=== PATIENT | female | born 1975 | race Caucasian/White ===

== ENCOUNTER 2024-11-21 18:14 | Emergency (ER) | payer BC, SELFPAY ==
--- NOTE | ~2024-11-21 | CT_ITS ---
EXAMINATION: CT brain wo con DATE: 11/21/2024 18:56 INDICATION: syncope, unknown cause . TECHNIQUE: Computed tomography (CT) of the head was performed without intravenous contrast. The mA wa s adjusted according to patient size. Iterative reconstruction technique was employed. The dose-lengt h product was 605.33 mGy-cm. COMPARISON: None. FINDINGS: No acute intracranial hemorrhage or extra-axial fluid collection. No hydrocephalus, mass, or herniation. No acute ischemic infarct. Unremarkable dural venous sinus attenuation. No acute osseous abnormality. The aerated spaces are clear. IMPRESSION: No acute intracranial process. Reviewed, dictated and finalized at location K.
--- NOTE | ~2024-11-21 | XR_ITS ---
A CHEST RADIOGRAPH, PA AND LATERAL CLINICAL HISTORY: cardiac history . COMPARISON: None available TECHNIQUE: PA and lateral views of the chest. FINDINGS The cardiomediastinal silhouette is unremarkable. The lungs are clear. IMPRESSION: No focal infiltrate or effusion. Reviewed, dictated and finalized at location A.
[2024-11-21 18:16] VITALS: BP 116/81; PULSE 88; RESP 16; TEMP 36.7; O2SAT 98
--- OUTSIDE RECORDS SUMMARY | 2024-11-21 18:16 | XMS_ITS | Clinical Summary ---
Author Organization [facility] Address [address] [place] [address] Care Team Providers Care Academic Associate Name Role Phone No, Physician Primary Care Provider [phone] Allergies Active Allergy Reactions Criticality Noted Date Comments Propoxyphene-Acetaminophen Medications VENTOLIN HFA 90 mcg/actuation inhaler USE 2 PUFFS BY MOUTH TWICE A DAY 5 8 Active budesonide-formote rol (SYMBICORT) 160-4.5 mcg/actuation inhaler Inhale 2 puffs 2 (two) times a day. Rinse mouth with water after use to reduce aftertaste and incidence of candidiasis. Do not swallow. Active ipratropium-albute rol (COMBIVENT RESPIMAT) 20-100 mcg/actuation inhalerIndications :Chronic Obstructive Pulmonary Disease with Bronchospasms Inhale 1 puff 4 (four) times a day. Active nystatin 100,000 unit/mL suspension Take 5 mL (500,000 Units total) by mouth 4 (four) times a day. 60 mL 8 Active methylPREDNISolone (MEDROL DOSEPACK) 4 mg Dosepack follow package directions 21 tablet 8 Active ALPRAZolam (XANAX) 0.5 mg tablet Take 1 tablet (0.5 mg total) by mouth 3 (three) times a day as needed for anxiety 10 tablet 0 Active ondansetron ODT (ZOFRAN-ODT) 4 mg disintegrating tablet Dissolve 1 tablet oral every 4 hours as needed for nausea or vomiting. 15 tablet 0 Active LORazepam (ATIVAN) 0.5 mg tablet Take 1 tablet (0.5 mg total) by mouth 3 (three) times a day as needed for anxiety 6 tablet 0 Active azithromycin (Zithromax Z-Ender) 250 mg tablet Take 1 tablet (250 mg total) by mouth daily Take first 2 tablets together, then 1 every day until finished. 6 tablet 4 Active benzonatate (TESSALON) 100 mg capsuleIndications :Cough Take 1 capsule (100 mg total) by mouth 3 (three) times a day as needed for cough for up to 30 doses 30 capsule 4 Active Active Problems Problem Noted Date Diagnosed Date Arthralgia of left foot 01/07/2018 Cellulitis of left foot 01/07/2018 Medical History Medical History Date Comments COPD (chronic obstructive pulmonary disease) Cervical cancer (HCC) COPD (chronic obstructive pulmonary disease) Social History Tobacco Use Types Packs/Day Years Used Date Smoking Tobacco: Every Day Smokeless Tobacco: Never Alcohol Use Standard Drinks/Week Comments Not Currently 0 (1 standard drink = 0.6 oz pur e alcohol) Personal Safety Answer Date Recorded Have you ever been in or are you currently in a harmful physical or emotional relationship or is someone making you feel afraid or unsafe? 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 Gender Identity Not on file Sexual Orientation Not on file Obstetrics History Last Filed Vital Signs Vital Sign Reading Time Taken Comments Blood Pressure 104/67 07/19/2023 3:00 PM CDT Pulse 93 07/19/2023 3:08 PM CDT Temperature 36.8 C (98.3 F) 07/19/2023 10:47 AM CDT Respiratory Rate 16 07/19/2023 10:47 AM CDT Oxygen Saturation 94% 07/19/2023 3:08 PM CDT Inhaled Oxygen Concentration - - Weight 77.1 kg (170 lb) 07/19/2023 10:47 AM CDT Height 175.3 cm (5' 9) 07/19/2023 10:47 AM CDT Body Mass Index 25.1 07/19/2023 10:47 AM CDT Plan of Treatment Health Maintenance Due Date Last Done Comments Cervical Cancer Screening 1973 Colon Cancer Screening-Colonoscopy 1973 Depression Screening 1973 Hepatitis C Screening 1973 DTaP/Tdap/Td Vaccine (1 - Tdap) 1984 Hepatitis B Screening 07/26/1991 Regular Well Visit/Exam 18-64 07/26/1991 Pneumococcal vaccine <65 (1 of 2 - PCV) 1992 Breast Cancer Screening-Mammogram 05/12/2016 016, 01/16/2014 Zoster Vaccine (1 of 2) 07/26/2023 Covid-19 Vaccine (4 - season) 2023 03/02/2021, 07/02/2020, 06/10/2020 Influenza Vaccine (#1) 2024 02/24/2022, 2014 Procedures Procedure Name Priority Date/Time Associated Diagnosis Comments DIGITAL MAMMOGRAPHY Routine 01/16/2014 1 :06 PM CDT from Last 3 Months or Most Recently Relevant to Health Maintenance Results * DIGITAL MAMMOGRAPHY (01/16/2014 1:06 PM CDT) Anatomical Region Laterality Modality Breast Mammography 01/16/2014 1:06 PM CDT Narrative 01/16/2014 4:39 PM CDT Diag Mamm Bi Acc#: [id number] DATE OF EXAM: Jan 16 2014 Performed by: CLINICAL HISTORY: Family history of breast cancer involving grandmother, great grandmother and one cousin. RESULT: Three images of each breast were obtained correlated to a study dated 03/02/10. There is a heterogeneous dense fibroglandular pattern once again identified which does diminish the mammogram sensitivity for lesion detection. No suspicious mass or calcification is identified to suggest mammographic evidence of malignancy. Digital technology was employed plus computer-aided detection software (R2) was utilized in interpretation of these images. This facility utilizes a reminder system to notify patients of yearly mammograms. IMPRESSION: 1. NO DEFINITIVE MAMMOGRAPHIC EVIDENCE OF MALIGNANCY. 2. DENSE HETEROGENEOUS FIBROGLANDULAR PATTERN DIMINISHING MAMMOGRAM SENSITIVITY FOR FOCAL LESION DETECTION. 3. ANNUAL FOLLOW-UP RECOMMENDED. BI-RADS CATEGORY 1 - NEGATIVE Interpreting Physician: BRADY DENT M.D. Read on: Jan 16 2014 1:06P Transcribed by: geovani On: Jan 16 2014 3:19P Approved Electronically by: BRADY DENT M.D. on: Jan 16 2014 4:39P Ordering DR: KENDAL MILNER Attending : KENDAL MILNER Procedure Note Provider, MD Marsha - 08/04/2016 Diag Mamm Bi Acc#: [id number] DATE OF EXAM: Jan 16 2014 Performed by: CLINICAL HISTORY: Family history of breast cancer involving grandmother, great grandmotherand one cousin. RESULT: Three images of each breast were obtained correlated to a study dated105/02/09. There is a heterogeneous dense fibroglandular pattern once againidentified which does diminish the mammogram sensitivity for lesiondetection. No suspicious mass or calcification is identified to suggestmammographic evidence of malignancy. Digital technology was employed pluscomputer-aided detection software ([employer]) was utilized in interpretation ofthese images. This facility utilizes a reminder system to notify patientsof yearly mammograms. IMPRESSION: 1. NO DEFINITIVE MAMMOGRAPHIC EVIDENCE OF MALIGNANCY. 2. DENSE HETEROGENEOUS FIBROGLANDULAR PATTERN DIMINISHING MAMMOGRAMSENSITIVITY FOR FOCAL LESION DETECTION. 3. ANNUAL FOLLOW-UP RECOMMENDED. BI-RADS CATEGORY 1 - NEGATIVE Interpreting Physician: BRADY DENT M.D. Read on: Jan 16 2014 1:06P Transcribed by: geovani On: Jan 16 2014 3:19P Approved Electronically by: BRADY DENT M.D. on: Jan 16 2014 4:39P Ordering DR: KENDAL MILNER Attending : KENDAL MILNER Historical Provider IMG MAMMO PROCEDURES Arleth l Result from Last 3 Months or Most Recently Relevant to Health Maintenance Insurance [facility] ACCESS CHOICE Member Subscriber Plan / Payer (Ef fective 2023-Present) Name:Risa mAanda Relation to Subscriber:Self Name:Risa Amanda Payer ID:[id number] (NAIC) Type:[employer] Address: [facility] [id number] [place] [id number] Care Teams Academic Associate Relationship Specialty Start Date End Date No, Physician PCP - General 05/16/19
--- OUTSIDE RECORDS SUMMARY | 2024-11-21 18:16 | XMS_ITS | Encounter Summary ---
Author Organization [facility] Address [address] [place] [address] Phone Care Team Providers Care Manufacturing Plant Technician Name Role Phone Kendall Blanton MD Unavailable [phone] Eddie Josue MD Primary Care Provider Remington Coker DPFrancisco Unavailable Unavailable Ayad Wilhelm MD Unavailable Reason for Visit * Reason Comments Medication Refill Encounter Details Date Type Department Care Team (Late st Contact Info) Description 02/13/2023 Refill [facility] [address] [place] [id number] Eddie Josue MD [address] [address] Medication Refill Social History Tobacco Use Types Packs/Day Years Used Date Smoking Tobacco: Never Smokeless Tobacco: Never Alcohol Use Standard Drinks/Week Comments No 0 (1 standard drink = 0.6 oz pur e alcohol) Sexually Active Control Partners Comments Not Currently Comments No Sex and Gender Information Value Date Recorded Sex Assigned at Not on file 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 Requested Prescriptions Pending Prescriptions Disp Refills zolpidem (AMBIEN) 5 MG Tablet [Pharmacy Med Name: ZOLPIDEM 5MG TABLETS] 30 Tablet 0 Sig: TAKE 1 TABLET BY MOUTH AT BEDTIME NEEDED FOR SLEEP Not Delegated - Off Protocol Failed - 02/13/2023 6:26 PM Failed - This refill cannot be delegated Passed - Visit with relevant provider in past 12 months or upcoming 90 days Recent Visits Date Type Provider Dept 08/31/22 Office Visit Eddie Josue MD [facility] 02/24/22 Office Visit Eddie Josue MD [facility] Showing recent visits within past 365 days and meeting all other requirements Future Appointments Date Type Provider Dept 03/01/23 Appointment Eddie Josue MD [facility] Showing future appointments within next 90 days and meeting all other requirements cyclobenzaprine (FLEXERIL) 10 MG Tablet [Pharmacy Med Name: CYCLOBENZAPRINE 10MG TABLETS] 90 Tablet0 Sig: TAKE 1 TABLET BY MOUTH THREE TIMES DAILY NEEDED FOR MUSCLE SPASMS Not Delegated - Muscle Relaxants Protocol Failed - 02/13/2023 6:26 PM Failed - This refill cannot be delegated Passed - Visit with relevant provider in past 12 months or upcoming 90 days Recent Visits Date Type Provider Dept 08/31/22 Office Visit Eddie Josue MD [facility] 02/24/22 Office Visit Eddie Josue MD [facility] Showing recent visits within past 365 days and meeting all other requirements Future Appointments Date Type Provider Dept 03/01/23 Appointment Eddie Josue MD [facility] Showing future appointments within next 90 days and meeting all other requirements ADVISOR documented in this encounter Plan of Treatment Upcoming Encounters Date Type Department Care Team (Late st Contact Info) Description 12/13/2024 10:30 AM CDT Office Visit [facility] - Family Medicine - [place] [address] [place] [address] Eddie Josue MD #2 [facility] [address] [place] [address] documented as of this encounter Visit Diagnoses Diagnosis Primary insomnia Persistent disorder of initiating or maintaining sleep documented in this encounter Additional Health Concerns Infection Onset Date Last Indicated Resolved Time Respiratory Rule-Out 07/13/2023 07/13/2023 024 2:06 PM CDT COVID - 19 07/13/2023 07/13/2023 07/13/2023 2:06 PM CDT documented as of this encounter Care Teams Manufacturing Plant Technician Relationship Specialty Start Date End Date Eddie Josue MD #2 [facility] [address] [place] [address] PCP - General Family Medicine 08/07/21 Kendall Blanton MD [address] [place] [address] [place] [address] Family Medicine 06/03/15 Remington Coker DPM Podiatry 02/10/22 Ayad Wilhelm MD #2 [facility] [address] [place] [address] Consulting Physician Colon and Rectal Surgery 10/27/23 documented as of this encounter
--- OUTSIDE RECORDS SUMMARY | 2024-11-21 18:16 | XMS_ITS | Encounter Summary ---
Author Organization [facility] Address [address] [place] [address] Phone Care Team Providers Care Covering And Lining Supervisor Name Role Phone Kendall Blanton MD Unavailable [phone] Eddie Josue MD Primary Care Provider Remington Coker DPFrancisco Unavailable Unavailable Ayad Wilhelm MD Unavailable Reason for Visit * Reason Comments Medication Refill Encounter Details Date Type Department Care Team (Late st Contact Info) Description 12/15/2022 Refill [facility] [address] [place] [id number] Eddie Josue MD #[address] [address] Medication Refill Social History Tobacco Use Types Packs/Day Years Used Date Smoking Tobacco: Never Smokeless Tobacco: Never Alcohol Use Standard Drinks/Week Comments No 0 (1 standard drink = 0.6 oz pur e alcohol) Sexually Active Control Partners Comments Not Currently Comments No Sex and Gender Information Value Date Recorded Sex Assigned at Not on file 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 Requested Prescriptions Pending Prescriptions Disp Refills cyclobenzaprine (FLEXERIL) 10 MG Tablet [Pharmacy Med Name: CYCLOBENZAPRINE 10MG TABLETS] 90 Tablet0 Sig: TAKE 1 TABLET BY MOUTH THREE TIMES DAILY NEEDED FOR MUSCLE SPASMS Not Delegated - Muscle Relaxants Protocol Failed - 12/15/2022 1:00 PM Failed - This refill cannot be delegated Passed - Visit with relevant provider in past 12 months or upcoming 90 days Recent Visits Date Type Provider Dept 08/31/22 Office Visit Eddie Josue MD [facility] 02/24/22 Office Visit Eddie Josue MD [facility] Showing recent visits within past 365 days and meeting all other requirements Future Appointments Date Type Provider Dept 03/01/23 Appointment Eddie Josue MD [facility] Showing future appointments within next 90 days and meeting all other requirements documented in this encounter Plan of Treatment Upcoming Encounters Date Type Department Care Team (Late st Contact Info) Description 12/13/2024 10:30 AM CDT Office Visit [facility] - Family Medicine - [place] [address] [place] [address] Eddie Josue MD #[address] [address] documented as of this encounter Visit Diagnoses Not on filedocumented in this encounter Additional Health Concerns Infection Onset Date Last Indicated Resolved Time Respiratory Rule-Out 07/13/2023 07/13/2023 024 2:06 PM CDT COVID - 19 07/13/2023 07/13/2023 07/13/2023 2:06 PM CDT documented as of this encounter Care Teams Covering And Lining Supervisor Relationship Specialty Start Date End Date Eddie Josue MD #[address] [address] PCP - General Family Medicine 08/07/21 Kendall Blanton MD [address] [place] [address] [place] [address] Family Medicine 06/03/15 Remington Coker DPM Podiatry 02/10/22 Ayad Wilhelm MD #[address] [address] Consulting Physician Colon and Rectal Surgery 10/27/23 documented as of this encounter
--- OUTSIDE RECORDS SUMMARY | 2024-11-21 18:16 | XMS_ITS | Encounter Summary ---
Author Organization [facility] Address [address] [place] [address] Phone Care Team Providers Care Gamer Name Role Phone Kendall Blanton MD Unavailable [phone] Eddie Josue MD Primary Care Provider Remington Coker DPM Unavailable Unavailable Ayad Wilhelm MD Unavailable Reason for Visit * Reason Comments Medication Refill Encounter Details Date Type Department Care Team (Late st Contact Info) Description 09/13/2022 Refill [facility] - Family Medicine [facility] #[address] [place] [address] Eddie Josue MD #[address] [address] Medication Refill Social History Tobacco Use Types Packs/Day Years Used Date Smoking Tobacco: Never Smokeless Tobacco: Never Alcohol Use Standard Drinks/Week Comments No 0 (1 standard drink = 0.6 oz pur e alcohol) Sexually Active Control Partners Comments Not Currently Comments No Sex and Gender Information Value Date Recorded Sex Assigned at Not on file 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 No / Unsure 08/31/2022 8:56 AM CDT documented as of this encounter Miscellaneous Notes * Telephone Encounter - Samra Ledesma RN - 09/14/2022 11:29 AM CDT PDMP Zolpidem 08/20/22 Medication failed the protocol, provider to review and approve the medication order if appropriate. Requested Prescriptions Pending Prescriptions Disp Refills zolpidem (AMBIEN) 5 MG Tablet [Pharmacy Med Name: ZOLPIDEM 5MG TABLETS] 30 Tablet 0 Sig: TAKE 1 TABLET BY MOUTH AT BEDTIME NEEDED FOR SLEEP Not Delegated - Off Protocol Failed - 09/13/2022 1:08 PM Failed - This refill cannot be delegated Passed - Visit with relevant provider in past 12 months or upcoming 90 days Recent Visits Date Type Provider Dept 08/31/22 Office Visit Eddie Josue MD [facility] 02/24/22 Office Visit Eddie Josue MD [facility] 11/18/21 Office Visit Eddei Josue MD [facility] Showing recent visits within past 365 days and meeting all other requirements Future Appointments No visits were found meeting these conditions. Showing future appointments within next 90 days and meeting all other requirements cyclobenzaprine (FLEXERIL) 10 MG Tablet [Pharmacy Med Name: CYCLOBENZAPRINE 10MG TABLETS] 90 Tablet0 Sig: TAKE 1 TABLET BY MOUTH THREE TIMES DAILY NEEDED FOR MUSCLE SPASMS Not Delegated - Muscle Relaxants Protocol Failed - 09/13/2022 1:08 PM Failed - This refill cannot be delegated Passed - Visit with relevant provider in past 12 months or upcoming 90 days Recent Visits Date Type Provider Dept 08/31/22 Office Visit Eddie Josue MD [facility] 02/24/22 Office Visit Eddie Josue MD [facility] 11/18/21 Office Visit Eddie Josue MD [facility] Showing recent visits within past 365 days and meeting all other requirements Future Appointments No visits were found meeting these conditions. Showing future appointments within next 90 days and meeting all other requirements documented in this encounter Plan of Treatment Upcoming Encounters Date Type Department Care Team (Late st Contact Info) Description 12/13/2024 10:30 AM CDT Office Visit [facility] - Family [facility] [address] [place] [address] Eddie Josue MD #2 [facility] [address] [place] [address] documented as of this encounter Visit Diagnoses Diagnosis Primary insomnia Persistent disorder of initiating or maintaining sleep documented in this encounter Additional Health Concerns Infection Onset Date Last Indicated Resolved Time Respiratory Rule-Out 07/13/2023 07/13/2023 024 2:06 PM CDT COVID - 19 07/13/2023 07/13/2023 07/13/2023 2:06 PM CDT documented as of this encounter Care Teams Gamer Relationship Specialty Start Date End Date Eddie Josue MD #[address] [address] PCP - General Family Medicine 08/07/21 Kendall Blanton MD [address] [place] [address] [place] [address] Family Medicine 06/03/15 Remington Coker DPM Podiatry 02/10/22 Ayad Wilhelm MD #[address] [address] Consulting Physician Colon and Rectal Surgery 10/27/23 documented as of this encounter
--- OUTSIDE RECORDS SUMMARY | 2024-11-21 18:16 | XMS_ITS | Encounter Summary ---
Author Organization [facility] Address [address] [place] [address] Phone Care Team Providers Care Design Drafter Name Role Phone Kendall Blanton MD Unavailable [phone] Eddie Josue MD Primary Care Provider Remington Coker DPM Unavailable Unavailable Ayad Wilhelm MD Unavailable Reason for Visit * Reason Comments Medication Refill Encounter Details Date Type Department Care Team (Late st Contact Info) Description 03/09/2022 Refill [facility] - Family Medicine [facility] #[address] [place] [address] Eddie Josue MD #[address] [address] Medication Refill Social History Tobacco Use Types Packs/Day Years Used Date Smoking Tobacco: Never Smokeless Tobacco: Never Alcohol Use Standard Drinks/Week Comments No 0 (1 standard drink = 0.6 oz pur e alcohol) Sexually Active Control Partners Comments Not Currently Comments No Sex and Gender Information Value Date Recorded Sex Assigned at Not on file Legal Sex Female 11:14 AM 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 No / Unsure 02/24/2022 8:18 AM PILOT PLANT OPERATOR HELPER documented as of this encounter Miscellaneous Notes * Telephone Encounter - Samra Ledesma RN - 03/09/2022 5:24 PM CST PDMP 02/15/22 Zolpidem Medication failed the protocol, provider to review and approve the medication order if appropriate. Requested Prescriptions Pending Prescriptions Disp Refills cyclobenzaprine (FLEXERIL) 10 MG Tablet [Pharmacy Med Name: CYCLOBENZAPRINE 10MG TABLETS] 42 Tablet0 Sig: TAKE 1 TABLET BY MOUTH EVERY 4 HOURS NEEDED FOR MUSCLE SPASMS Not Delegated - Muscle Relaxants Protocol Failed - 03/09/2022 5:16 PM Failed - This refill cannot be delegated Passed - Visit with relevant provider in past 12 months or upcoming 90 days Recent Visits Date Type Provider Dept 02/24/22 Office Visit Eddie Josue MD [facility] 11/18/21 Office Visit Eddie Josue MD [facility] 08/17/21 Office Visit Eddie Josue MD [facility] Showing recent visits within past 365 days and meeting all other requirements Future Appointments No visits were found meeting these conditions. Showing future appointments within next 90 days and meeting all other requirements zolpidem (AMBIEN) 5 MG Tablet [Pharmacy Med Name: ZOLPIDEM 5MG TABLETS] 30 Tablet 0 Sig: TAKE 1 TABLET BY MOUTH AT BEDTIME NEEDED FOR SLEEP There is no refill protocol information for this order T PLANT OPERATOR HELPER documented in this encounter Plan of Treatment Upcoming Encounters Date Type Department Care Team (Late st Contact Info) Description 12/13/2024 10:30 AM CDT Office Visit [facility] - Family Medicine - [place] [address] [place] [address] Eddie Josue MD [address] [address] documented as of this encounter Visit Diagnoses Diagnosis Primary insomnia Persistent disorder of initiating or maintaining sleep documented in this encounter Additional Health Concerns Infection Onset Date Last Indicated Resolved Time Respiratory Rule-Out 07/13/2023 07/13/2023 024 2:06 PM CDT COVID - 19 07/13/2023 07/13/2023 07/13/2023 2:06 PM CDT documented as of this encounter Care Teams Design Drafter Relationship Specialty Start Date End Date Eddie Josue MD #2 [facility] [address] [place] [address] PCP - General Family Medicine 08/07/21 Kendall Blanton MD [address] [place] [address] [place] [address] Family Medicine 06/03/15 Remington Coker DPM Podiatry 02/10/22 Ayad Wilhelm MD #2 [facility] [address] [place] [address] Consulting Physician Colon and Rectal Surgery 10/27/23 documented as of this encounter
--- OUTSIDE RECORDS SUMMARY | 2024-11-21 18:16 | XMS_ITS | Encounter Summary ---
Author Organization [facility] Address [address] [place] [address] Phone Care Team Providers Care Stripper And Printer Name Role Phone Kendall Blanton MD Unavailable [phone] Eddie Josue MD Primary Care Provider [phone] Remington Coker DPFrancisco Unavailable Unavailable Ayad Wilhelm MD Unavailable Reason for Visit * Reason Comments Medication Refill Encounter Details Date Type Department Care Team (Late st Contact Info) Description 07/19/2022 [facility]ill [facility] #2 [place] [id number] Eddie Josue MD #[address] [address] Medication Refill Social History Tobacco Use Types Packs/Day Years Used Date Smoking Tobacco: Never Smokeless Tobacco: Never Alcohol Use Standard Drinks/Week Comments No 0 (1 standard drink = 0.6 oz pur e alcohol) Sexually Active Control Partners Comments Not Currently Comments No Sex and Gender Information Value Date Recorded Sex Assigned at Not on file 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 #2 [place] [address] Eddie Josue MD #[address] [address] documented as of this encounter Visit Diagnoses Diagnosis Primary insomnia Persistent disorder of initiating or maintaining sleep documented in this encounter Additional Health Concerns Infection Onset Date Last Indicated Resolved Time Respiratory Rule-Out 07/13/2023 07/13/2023 024 2:06 PM CDT COVID - 19 07/13/2023 07/13/2023 07/13/2023 2:06 PM CDT documented as of this encounter Care Teams Stripper And Printer Relationship Specialty Start Date End Date Eddie Josue MD #[address] [address] PCP - General Family Medicine 08/07/21 Kendall Blanton MD [address] [place] [address] [place] [address] Family Medicine 06/03/15 Remington Coker DPM Podiatry 02/10/22 Ayad Wilhelm MD #[address] [address] Consulting Physician Colon and Rectal Surgery 10/27/23 documented as of this encounter
--- OUTSIDE RECORDS SUMMARY | 2024-11-21 18:16 | XMS_ITS | Encounter Summary ---
Author Organization [facility] Address [address] [place] [address] Phone Care Team Providers Care Carbonizer Name Role Phone Kendall Blanton MD Unavailable [phone] Eddie Josue MD Primary Care Provider Remington Coker DPFrancisco Unavailable Unavailable Ayad Wilhelm MD Unavailable Reason for Visit * Reason Comments Medication Refill Encounter Details Date Type Department Care Team (Late st Contact Info) Description 08/19/2022 Refill [facility] #2 [place] [id number] Eddie Josue MD #[address] [address] Medication Refill Social History Tobacco Use Types Packs/Day Years Used Date Smoking Tobacco: Never Smokeless Tobacco: Never Alcohol Use Standard Drinks/Week Comments No 0 (1 standard drink = 0.6 oz pur e alcohol) Sexually Active Control Partners Comments Not Currently Comments No Sex and Gender Information Value Date Recorded Sex Assigned at Not on file 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 Requested Prescriptions Pending Prescriptions Disp Refills zolpidem (AMBIEN) 5 MG Tablet [Pharmacy Med Name: ZOLPIDEM 5MG TABLETS] 30 Tablet 0 Sig: TAKE 1 TABLET BY MOUTH AT BEDTIME NEEDED FOR SLEEP Not Delegated - Off Protocol Failed - 08/19/2022 1:12 PM Failed - This refill cannot be delegated Passed - Visit with relevant provider in past 12 months or upcoming 90 days Recent Visits Date Type Provider Dept 02/24/22 Office Visit Eddie Josue MD [facility] 11/18/21 Office Visit Eddie Josue MD [facility] Showing recent visits within past 365 days and meeting all other requirements Future Appointments Date Type Provider Dept 08/31/22 Appointment Eddie Josue MD [facility] Showing future appointments within next 90 days and meeting all other requirements cyclobenzaprine (FLEXERIL) 10 MG Tablet [Pharmacy Med Name: CYCLOBENZAPRINE 10MG TABLETS] 90 Tablet0 Sig: TAKE 1 TABLET BY MOUTH THREE TIMES DAILY NEEDED FOR MUSCLE SPASMS Not Delegated - Muscle Relaxants Protocol Failed - 08/19/2022 1:12 PM Failed - This refill cannot be delegated Passed - Visit with relevant provider in past 12 months or upcoming 90 days Recent Visits Date Type Provider Dept 02/24/22 Office Visit Eddie Josue MD [facility] 11/18/21 Office Visit Eddie [place]u MD [facility] Showing recent visits within past 365 days and meeting all other requirements Future Appointments Date Type Provider Dept 08/31/22 Appointment Eddie Josue MD [facility] Showing future appointments within next 90 days and meeting all other requirements documented in this encounter Plan of Treatment Upcoming Encounters Date Type Department Care Team (Late st Contact Info) Description 12/13/2024 10:30 AM CDT Office Visit [facility] - [facility] - [place] #2 [place] [phone] Eddie Josue MD #2 [facility] [address] [place] [address] documented as of this encounter Visit Diagnoses Diagnosis Primary insomnia Persistent disorder of initiating or maintaining sleep documented in this encounter Additional Health Concerns Infection Onset Date Last Indicated Resolved Time Respiratory Rule-Out 07/13/2023 07/13/2023 024 2:06 PM CDT COVID - 19 07/13/2023 07/13/2023 07/13/2023 2:06 PM CDT documented as of this encounter Care Teams Carbonizer Relationship Specialty Start Date End Date Eddie Josue MD #2 [facility] [address] [place] [address] PCP - General Family Medicine 08/07/21 Kendall Blanton MD [address] [place] [address] [place] [address] Family Medicine 06/03/15 Remington Coker DPM Podiatry 02/10/22 Ayad Wilhelm MD #2 [facility] [address] [place] [address] Consulting Physician Colon and Rectal Surgery 10/27/23 documented as of this encounter
--- OUTSIDE RECORDS SUMMARY | 2024-11-21 18:16 | XMS_ITS | Encounter Summary ---
Author Organization [facility] Address [address] [place] [address] Phone Care Team Providers Care Dry House Operator Name Role Phone Kendall Blanton MD Unavailable [phone] Eddie Josue MD Primary Care Provider Remington Coker DPM Unavailable Unavailable Ayad Wilhelm MD Unavailable Reason for Visit * Reason Comments Medication Refill Encounter Details Date Type Department Care Team (Late st Contact Info) Description 01/14/2023 Refill [facility] #2 [place] [phone] Eddie Josue MD #[address] [address] Medication Refill Social History Tobacco Use Types Packs/Day Years Used Date Smoking Tobacco: Never Smokeless Tobacco: Never Alcohol Use Standard Drinks/Week Comments No 0 (1 standard drink = 0.6 oz pur e alcohol) Sexually Active Control Partners Comments Not Currently Comments No Sex and Gender Information Value Date Recorded Sex Assigned at Not on file 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 Requested Prescriptions Pending Prescriptions Disp Refills zolpidem (AMBIEN) 5 MG Tablet [Pharmacy Med Name: ZOLPIDEM 5MG TABLETS] 30 Tablet 0 Sig: TAKE 1 TABLET BY MOUTH AT BEDTIME NEEDED FOR SLEEP Not Delegated - Off Protocol Failed - 01/14/2023 7:27 AM Failed - This refill cannot be delegated [...] Description 12/13/2024 10:30 AM CDT [address] [facility] - Family Medicine - [place] #2 [place] [address] Eddie Josue MD #[address] [address] documented as of this encounter Visit Diagnoses Diagnosis Primary insomnia Persistent disorder of initiating or maintaining sleep documented in this encounter Additional Health Concerns Infection Onset Date Last Indicated Resolved Time Respiratory Rule-Out 07/13/2023 07/13/2023 024 2:06 PM CDT COVID - 19 07/13/2023 07/13/2023 07/13/2023 2:06 PM CDT documented as of this encounter Care Teams Dry House Operator Relationship Specialty Start Date End Date Eddie Josue MD #[address] [address] PCP - General Family Medicine 08/07/21 Kendall Blanton MD [address] [place] [address] [place] [address] Family Medicine 06/03/15 Remington Coker DPM Podiatry 02/10/22 Ayad Wilhelm MD #[address] [address] Consulting Physician Colon and Rectal Surgery 10/27/23 documented as of this encounter
--- OUTSIDE RECORDS SUMMARY | 2024-11-21 18:16 | XMS_ITS | Encounter Summary ---
Author Organization [facility] Address [address] [place] [address] Phone Care Team Providers Care Laborer Mine Name Role Phone Kendall Blanton MD Unavailable [phone] Eddie Josue MD Primary Care Provider [phone] Remington Coker DPFrancisco Unavailable Unavailable Ayad Wilhelm MD Unavailable Reason for Visit * Reason Comments Medication Refill Encounter Details Date Type Department Care Team (Late st Contact Info) Description 07/18/2022 Refill [facility] #2 [place] [phone] Eddie Josue MD #[address] [address] Medication Refill Social History Tobacco Use Types Packs/Day Years Used Date Smoking Tobacco: Never Smokeless Tobacco: Never Alcohol Use Standard Drinks/Week Comments No 0 (1 standard drink = 0.6 oz pur e alcohol) Sexually Active Control Partners Comments Not Currently Comments No Sex and Gender Information Value Date Recorded Sex Assigned at Not on file 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 Requested Prescriptions Pending Prescriptions Disp Refills zolpidem (AMBIEN) 5 MG Tablet [Pharmacy Med Name: ZOLPIDEM 5MG TABLETS] 30 Tablet 0 Sig: TAKE 1 TABLET BY MOUTH AT BEDTIME NEEDED FOR SLEEP Not Delegated - Off Protocol Failed - 07/18/2022 3:15 AM Failed - This refill cannot be delegated Passed - Visit with relevant provider in past 12 months or upcoming 90 days Recent Visits Date Type Provider Dept 02/24/22 Office Visit Eddie Josue MD [facility] 11/18/21 Office Visit Eddie Josue MD [facility] 08/17/21 Office Visit Eddie Josue MD [facility] [...] Delegated - Muscle Relaxants Protocol Failed - 07/18/2022 3:15 AM Failed - This refill cannot be delegated Passed - Visit with relevant provider in past 12 months or upcoming 90 days Recent Visits Date Type Provider Dept 02/24/22 Office Visit Eddie Josue MD [facility] 11/18/21 Office Visit Eddei Josue MD [facility] 08/17/21 Office Visit Eddie Josue MD [facility] [...] Office Visit [facility] #[address] [place] [address] Eddie Josue MD #2 [facility] [address] [place] [address] documented as of this encounter Visit Diagnoses Diagnosis Primary insomnia Persistent disorder of initiating or maintaining sleep documented in this encounter Additional Health Concerns Infection Onset Date Last Indicated Resolved Time Respiratory Rule-Out 07/13/2023 07/13/2023 024 2:06 PM CDT COVID - 19 07/13/2023 07/13/2023 07/13/2023 2:06 PM CDT documented as of this encounter Care Teams Laborer Mine Relationship Specialty Start Date End Date Eddie Josue MD #2 [facility] [address] [place] [address] PCP - General Family Medicine 08/07/21 Kendall Blanton MD [address] [place] [address] [place] [address] Family Medicine 06/03/15 Remington Coker DPM Podiatry 02/10/22 Ayad Wilhelm MD #[address] [address] Consulting Physician Colon and Rectal Surgery 10/27/23 documented as of this encounter
--- OUTSIDE RECORDS SUMMARY | 2024-11-21 18:16 | XMS_ITS | Encounter Summary ---
Author Organization [facility] Address [address] [place] [address] Phone Care Team Providers Care Blow Molder Name Role Phone Kendall Blanton MD Unavailable [phone] Eddie Josue MD Primary Care Provider [phone] Remington Coker DPFrancisco Unavailable Unavailable Ayad Wilhelm MD Unavailable Reason for Visit * Reason Comments Medication Refill Encounter Details Date Type Department Care Team (Late st Contact Info) Description 09/06/2023 Refill [facility] - Family Medicine [facility] #2 [place] [address] Eddie Josue MD #[address] [address] Medication Refill Social History Tobacco Use Types Packs/Day Years Used Date Smoking Tobacco: Never Smokeless Tobacco: Never Alcohol Use Standard Drinks/Week Comments No 0 (1 standard drink = 0.6 oz pur e alcohol) [facility] Utilities Answer Date Recorded In the past 12 months has e electric, gas, oil, or water company threatened to shut off services in your home? No 08/08/2023 Social Connection and Isolation Panel Answer Date Recorded In a typical week, how many times do you talk on the phone with family, friends, or neighbors? Never 08/08/2023 How often do you get together with friends or re latives? Never 08/08/2023 How often do you attend buddhist or jehovah's witness serv ices? Never 08/08/2023 Do you belong to any clubs o r organizations such as buddhist groups, unions, fraternal or athletic groups, or school groups? No 08/08/2023 How often do you attend meet ings of the clubs or organizations you belong to? Never 08/08/2023 Are you , , di vorced, , never , or living with a partner? Never 08/08/2023 AUDIT-C Answer Date Recorded Q1: How often do you have a drink containing alcohol? Never 08/08/2023 Q2: How many drinks containi ng alcohol do you have on a typical day when you are drinking? Patient does not drink Q3: How often do you have si x or more drinks on one occasion? Never 08/08/2023 Overall Financial Resource Strain (CARDIA) Answe r Date Recorded How hard is it for you to pa y for the very basics like food, housing, medical care, and heating? Somewhat hard 08/08/2023 PHQ-2 Answer Date Recorded Total Score - Questions 1-9 0 07/12 [facility] Occupat ional Health - Occupational Stress Questionnaire Answer Date Recorded Do you feel stress - tense, restless, nervous, or anxious, or unable to sleep at night because your mind is troubled all the time - these days? To some extent 08/08/2023 Exercise Vital Sign Answer Date Recorde d On average, how many days pe r week do you engage in moderate to strenuous exercise (like a brisk walk)? 4 days 08/08/2023 On average, how many minutes do you engage in exercise at this level? 60 min 08/08/2023 Hunger Vital Sign Answer Date Recorded Within the past 12 months, y ou worried that your food would run out before you got the money to buy more. Never true 08/08/19 24 Within the past 12 months, t he food you bought just didn't last and you didn't have money to get more. Never true 08/08/2023 PRAPARE - Transportation Answer Date Re corded In the past 12 months, has l ack of transportation kept you from medical appointments or from getting medications? No 07/11 In the past 12 months, has l ack of transportation kept you from meetings, work, or from getting things needed for daily living? No 08/08/2023 Housing Stability Vital Sign Answer Ton e Recorded In the last 12 months, was t here a time when you were not able to pay the mortgage or rent on time? Yes 08/08/2023 In the last 12 months, how many places have you lived? 1 08/08/2023 In the last 12 months, was t here a time when you did not have a steady place to sleep or slept in a mcc (including now)? 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 Requested Prescriptions Pending Prescriptions Disp Refills zolpidem (AMBIEN) 5 MG Tablet [Pharmacy Med Name: ZOLPIDEM 5MG TABLETS] 30 Tablet 0 Sig: TAKE 1 TABLET BY MOUTH EVERY NIGHT NEEDED FOR SLEEP Not Delegated - Off Protocol Failed - 09/06/2023 4:45 PM Failed - This refill cannot be delegated Passed - Visit with relevant provider in past 12 months or upcoming 90 days Recent Visits Date Type Provider Dept 08/09/23 Office Visit Eddie Josue MD [facility] 07/13/23 Office Visit [facility] [place] Showing recent visits within past 365 days [...] Delegated - Muscle Relaxants Protocol Failed - 09/06/2023 4:45 PM Failed - This refill cannot be delegated Passed - Visit with relevant provider in past 12 months or upcoming 90 days Recent Visits Date Type Provider Dept 08/09/23 Office Visit Eddie Josue MD [facility] [place] 07/13/23 Office Visit Eddie Josue MD [facility] Showing recent visits within past 365 [...] Office Visit [facility] - [place] #2 [facility] [place] [address] Eddie Josue MD #[address] [address] documented as of this encounter Visit Diagnoses Diagnosis Primary insomnia Persistent disorder of initiating or maintaining sleep documented in this encounter Additional Health Concerns Assessment Noted Time PHQ-9 Depression Total Score: 0 08/09/19 11:07 AM CDT documented as of this encounter Care Teams Blow Molder Relationship Specialty Start Date End Date Eddie Josue MD #[address] [address] PCP - General Family Medicine 08/07/21 Kendall Blanton MD [address] [place] [address] [place] [address] Family Medicine 06/03/15 Remington Coker DPM Podiatry 02/10/22 Ayad Wilhelm MD #[address] [address] Consulting Physician Colon and Rectal Surgery 10/27/23 documented as of this encounter
--- OUTSIDE RECORDS SUMMARY | 2024-11-21 18:16 | XMS_ITS | Encounter Summary ---
Author Organization [facility] Address [address] [place] [address] Phone Care Team Providers Care Machine Operator Farmworker Name Role Phone Kendall Blanton MD Unavailable [phone] Eddie Josue MD Primary Care Provider [phone] Remington Coker DPFrancisco Unavailable Unavailable Ayad Wilhelm MD Unavailable Reason for Visit * Reason Comments Medication Refill Encounter Details Date Type Department Care Team (Late st Contact Info) Description 04/11/2022 Refill [facility] #2 [place] [phone] Eddie Josue MD #[address] [address] Medication Refill Social History Tobacco Use Types Packs/Day Years Used Date Smoking Tobacco: Never Smokeless Tobacco: Never Alcohol Use Standard Drinks/Week Comments No 0 (1 standard drink = 0.6 oz pur e alcohol) Sexually Active Control Partners Comments Not Currently Comments No Sex and Gender Information Value Date Recorded Sex Assigned at Not on file 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 Requested Prescriptions Pending Prescriptions Disp Refills zolpidem (AMBIEN) 5 MG Tablet [Pharmacy Med Name: ZOLPIDEM 5MG TABLETS] 30 Tablet 0 Sig: TAKE 1 TABLET BY MOUTH AT BEDTIME NEEDED FOR SLEEP Not Delegated - Off Protocol Failed - 04/11/2022 6:50 PM Failed - This refill cannot be delegated Passed - Visit with relevant provider in past 12 months or upcoming 90 days Recent Visits Date Type Provider Dept 02/24/22 Office Visit Eddie Josue MD [facility] [place] 11/18/21 Office Visit Eddie Josue MD [facility] 08/17/21 Office Visit Eddie Josue MD [facility] Showing recent visits within past 365 days and meeting all other requirements Future Appointments No visits were found meeting these conditions. Showing future appointments within next 90 days and meeting all other requirements OR JAVA WEB DEVELOPER documented in this encounter Plan of Treatment Upcoming Encounters Date Type Department Care Team (Late st Contact Info) Description 12/13/2024 10:30 AM CDT Office Visit [facility] - Family Medicine - [place] #2 [place] [address] Eddie Josue MD #[address] [address] documented as of this encounter Visit Diagnoses Diagnosis Primary insomnia Persistent disorder of initiating or maintaining sleep documented in this encounter Additional Health Concerns Infection Onset Date Last Indicated Resolved Time Respiratory Rule-Out 07/13/2023 07/13/2023 024 2:06 PM CDT COVID - 19 07/13/2023 07/13/2023 07/13/2023 2:06 PM CDT documented as of this encounter Care Teams Machine Operator Farmworker Relationship Specialty Start Date End Date Eddie Josue MD #[address] [address] PCP - General Family Medicine 08/07/21 Kendall Blanton MD [address] [place] [address] [place] [address] Family Medicine 06/03/15 Remington Coker DPM Podiatry 02/10/22 Ayad Wilhelm MD #2 [place] [address] [place] [address] Consulting Physician Colon and Rectal Surgery 10/27/23 documented as of this encounter
--- OUTSIDE RECORDS SUMMARY | 2024-11-21 18:16 | XMS_ITS | Encounter Summary ---
Author Organization [facility] Address [address] [place] [address] Phone Care Team Providers Care End Lathe Operator Name Role Phone Kendall Blanton MD Unavailable [phone] Eddie Josue MD Primary Care Provider Remington Coker DPFrancsico Unavailable Unavailable Ayad Wilhelm MD Unavailable Reason for Visit * Reason Comments Medication Refill Encounter Details Date Type Department Care Team (Late st Contact Info) Description 06/18/2022 [facility]ill [facility] #2 [place] [id number] Eddie Josue MD #[address] [address] Medication Refill Social History Tobacco Use Types Packs/Day Years Used Date Smoking Tobacco: Never Smokeless Tobacco: Never Alcohol Use Standard Drinks/Week Comments No 0 (1 standard drink = 0.6 oz pur e alcohol) Sexually Active Control Partners Comments Not Currently Comments No Sex and Gender Information Value Date Recorded Sex Assigned at Not on file 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 Requested Prescriptions Pending Prescriptions Disp Refills zolpidem (AMBIEN) 5 MG Tablet [Pharmacy Med Name: ZOLPIDEM 5MG TABLETS] 30 Tablet 0 Sig: TAKE 1 TABLET BY MOUTH AT BEDTIME NEEDED FOR SLEEP Not Delegated - Off Protocol Failed - 06/18/2022 7:13 AM Failed - This refill cannot be delegated Passed - Visit with relevant provider in past 12 months or upcoming 90 days Recent Visits Date Type Provider Dept 02/24/22 Office Visit Eddie Josue MD [facility] 11/18/21 Office Visit Eddie Josue MD [facility] [place] 08/17/21 Office Visit Eddie Josue MD [facility] Showing recent visits within past 365 days and meeting all other requirements Future Appointments Date Type Provider Dept 08/31/22 Appointment Eddie Josue MD [facility] [place] Showing future appointments within next 90 days and meeting all other requirements OOD PROCESSOR documented in this encounter Plan of Treatment Upcoming Encounters Date Type Department Care Team (Late st Contact Info) Description 12/13/2024 10:30 AM CDT Office Visit [facility] - Family Medicine [facility] #2 [place] [address] Eddie Josue MD #[address] [address] documented as of this encounter Visit Diagnoses Diagnosis Primary insomnia Persistent disorder of initiating or maintaining sleep documented in this encounter Additional Health Concerns Infection Onset Date Last Indicated Resolved Time Respiratory Rule-Out 07/13/2023 07/13/2023 024 2:06 PM CDT COVID - 19 07/13/2023 07/13/2023 07/13/2023 2:06 PM CDT documented as of this encounter Care Teams End Lathe Operator Relationship Specialty Start Date End Date Eddie Josue MD #[address] [facility] [address] [place] [address] PCP - General Family Medicine 08/07/21 Kendall Blanton MD [address] [place] [address] [place] [address] Family Medicine 06/03/15 Remington Coker DPM Podiatry 02/10/22 Ayad Wilhelm MD #2 [address] [address] [place] [address] Consulting Physician Colon and Rectal Surgery 10/27/23 documented as of this encounter
--- OUTSIDE RECORDS SUMMARY | 2024-11-21 18:16 | XMS_ITS | Encounter Summary ---
Author Organization [facility] Address [address] [place] [address] Phone Care Team Providers Care Gis Physical Scientist Name Role Phone Kendall Blanton MD Unavailable [phone] Eddie Josue MD Primary Care Provider [phone] Remington Coker DPFrancisco Unavailable Unavailable Ayad Wilhelm MD Unavailable Reason for Visit * Reason Comments Medication Refill Encounter Details Date Type Department Care Team (Late st Contact Info) Description 10/13/2022 Refill [facility] #2 [place] [id number] Eddie Josue MD #[address] [address] Medication Refill Social History Tobacco Use Types Packs/Day Years Used Date Smoking Tobacco: Never Smokeless Tobacco: Never Alcohol Use Standard Drinks/Week Comments No 0 (1 standard drink = 0.6 oz pur e alcohol) Sexually Active Control Partners Comments Not Currently Comments No Sex and Gender Information Value Date Recorded Sex Assigned at Not on file 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 Requested Prescriptions Pending Prescriptions Disp Refills cyclobenzaprine (FLEXERIL) 10 MG Tablet [Pharmacy Med Name: CYCLOBENZAPRINE 10MG TABLETS] 90 Tablet0 Sig: TAKE 1 TABLET BY MOUTH THREE TIMES DAILY NEEDED FOR MUSCLE SPASMS Not Delegated - Muscle Relaxants Protocol Failed - 10/13/2022 11:53 AM Failed - This refill cannot be delegated Passed - Visit with relevant provider in past 12 months or upcoming 90 days Recent Visits Date Type Provider Dept 08/31/22 Office Visit Eddie Josue MD [facility] 02/24/22 Office Visit Eddie Josue MD [facility] 11/18/21 Office Visit Eddie Josue MD [facility] Showing recent visits within past 365 days [...] no refill protocol information for this order documented in this encounter Plan of Treatment Upcoming Encounters Date Type Department Care Team (Late st Contact Info) Description 12/13/2024 10:30 AM CDT Office Visit [facility] - Family Medicine [facility] [address] [place] [address] Eddie Josue MD #[address] [address] documented as of this encounter Visit Diagnoses Diagnosis Primary insomnia Persistent disorder of initiating or maintaining sleep documented in this encounter Additional Health Concerns Infection Onset Date Last Indicated Resolved Time Respiratory Rule-Out 07/13/2023 07/13/2023 024 2:06 PM CDT COVID - 19 07/13/2023 07/13/202307/13/2023 2:06 PM CDT documented as of this encounter Care Teams Gis Physical Scientist Relationship Specialty Start Date End Date Eddie Josue MD #2 [facility] [address] [place] [address] PCP - General Family Medicine 08/07/21 Kendall Blanton MD [address] [place] [address] [place] [address] Family Medicine 06/03/15 Remington Coker DPM Podiatry 02/10/22 Ayad Wilhelm MD #2 [facility] [address] [place] [address] Consulting Physician Colon and Rectal Surgery 10/27/23 documented as of this encounter
--- OUTSIDE RECORDS SUMMARY | 2024-11-21 18:16 | XMS_ITS | Encounter Summary ---
Author Organization [facility] Address [address] [place] [address] Phone Care Team Providers Care General Merchandise Salesperson Name Role Phone Kendall Blanton MD Unavailable [phone] Eddie Josue MD Primary Care Provider [phone] Remington Coker DPM Unavailable Unavailable Ayad Wilhelm MD Unavailable Reason for Visit * Reason Comments Medication Refill Encounter Details Date Type Department Care Team (Late st Contact Info) Description 05/17/2022 Refill [facility] - Family Medicine [facility] #2 [place] [address] Eddie Josue MD #[address] [address] Medication Refill Social History Tobacco Use Types Packs/Day Years Used Date Smoking Tobacco: Never Smokeless Tobacco: Never Alcohol Use Standard Drinks/Week Comments No 0 (1 standard drink = 0.6 oz pur e alcohol) Sexually Active Control Partners Comments Not Currently Comments No Sex and Gender Information Value Date Recorded Sex Assigned at Not on file Legal Sex Female 11:14 AM SENIOR APPLICATION SOFTWARE ENGINEER Gender Identity Not on file Sexual Orientation Not on file COVID-19 Exposure Response Date Recorded In the last 10 days, have yo u been in contact with someone who was confirmed or suspected to have Coronavirus/COVID-19? No / Unsure 05/18/2022 10:02 AM SENIOR APPLICATION SOFTWARE ENGINEER documented as of this encounter Miscellaneous Notes * Telephone Encounter - Samra Ledesma RN - 05/18/2022 9:09 AM CST PDMP Zolpidem 04/17/22 Medication failed the protocol, provider to review and approve the medication order if appropriate. Requested Prescriptions Pending Prescriptions Disp Refills zolpidem (AMBIEN) 5 MG Tablet [Pharmacy Med Name: ZOLPIDEM 5MG TABLETS] 30 Tablet 0 Sig: TAKE 1 TABLET BY MOUTH AT BEDTIME NEEDED FOR SLEEP Not Delegated - Off Protocol Failed - 05/17/2022 11:09 PM Failed - This refill cannot be [...] Delegated - Muscle Relaxants Protocol Failed - 05/17/2022 11:09 PM Failed - This refill cannot be [...] days and meeting all other requirements OR APPLICATION SOFTWARE ENGINEER documented in this encounter Plan of Treatment Upcoming Encounters Date Type Department Care Team (Late st Contact Info) Description 12/13/2024 10:30 AM CDT Office Visit [facility] - Family [facility] #[address] [place] [address] Eddie Josue MD #2 [facility] [address] [place] [address] documented as of this encounter Visit Diagnoses Diagnosis Primary insomnia Persistent disorder of initiating or maintaining sleep documented in this encounter Additional Health Concerns Infection Onset Date Last Indicated Resolved Time Respiratory Rule-Out 07/13/2023 07/13/2023 024 2:06 PM CDT COVID - 19 07/13/2023 07/13/2023 07/13/2023 2:06 PM CDT documented as of this encounter Care Teams General Merchandise Salesperson Relationship Specialty Start Date End Date Eddie Josue MD #2 [facility] [address] [place] [address] PCP - General Family Medicine 08/07/21 Kendall Blanton MD [address] [place] [address] [place] [address] Family Medicine 06/03/15 Remington Coker DPM Podiatry 02/10/22 Ayad Wilhelm MD #2 [facility] [address] [place] [address] Consulting Physician Colon and Rectal Surgery 10/27/23 documented as of this encounter
--- OUTSIDE RECORDS SUMMARY | 2024-11-21 18:16 | XMS_ITS | Encounter Summary ---
Author Organization [facility] Address [address] [place] [address] Phone Care Team Providers Care Government Guard Name Role Phone Kendall Blanton MD Unavailable [phone] Eddie Josue MD Primary Care Provider Remington Coker DPFrancisco Unavailable Unavailable Ayad Wilhelm MD Unavailable Reason for Visit * Reason Comments Medication Refill Encounter Details Date Type Department Care Team (Late st Contact Info) Description 01/14/2023 Refill [facility] #2 [place] [address] Treva Hassan APRN, GROUNDS AND NURSERY SPECIALIST #[address] [address] Medication Refill Social History Tobacco Use Types Packs/Day Years Used Date Smoking Tobacco: Never Smokeless Tobacco: Never Alcohol Use Standard Drinks/Week Comments No 0 (1 standard drink = 0.6 oz pur e alcohol) Sexually Active Control Partners Comments Not Currently Comments No Sex and Gender Information Value Date Recorded Sex Assigned at Not on file 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 Requested Prescriptions Pending Prescriptions Disp Refills cyclobenzaprine (FLEXERIL) 10 MG Tablet [Pharmacy Med Name: CYCLOBENZAPRINE 10MG TABLETS] 90 Tablet0 Sig: TAKE 1 TABLET BY MOUTH THREE TIMES DAILY NEEDED FOR MUSCLE SPASMS Not Delegated - Muscle Relaxants Protocol Failed - 01/14/2023 7:27 AM Failed - This refill cannot be delegated Passed - Visit with relevant provider in past 12 months or upcoming 90 days Recent Visits Date Type Provider Dept 08/31/22 Office Visit Eddie Josue MD [facility] [place] 02/24/22 Office Visit Eddie Josue MD [facility] [place] Showing recent visits within past 365 days and meeting all other requirements Future Appointments Date Type Provider Dept 03/01/23 Appointment Eddie Josue MD [facility] Showing future appointments within next 90 days and meeting all other requirements documented in this encounter Plan of Treatment Upcoming Encounters Date Type Department Care Team (Late st Contact Info) Description 12/13/2024 10:30 AM CDT Office Visit [facility] Group - Family Medicine - [place] #2 [place] [address] Eddie Josue MD #[address] [address] documented as of this encounter Visit Diagnoses Not on filedocumented in this encounter Additional Health Concerns Infection Onset Date Last Indicated Resolved Time Respiratory Rule-Out 07/13/2023 07/13/2023 024 2:06 PM CDT COVID - 19 07/13/2023 07/13/2023 07/13/2023 2:06 PM CDT documented as of this encounter Care Teams Government Guard Relationship Specialty Start Date End Date Eddie Josue MD #[address] [address] PCP - General Family Medicine 08/07/21 Kendall Blanton MD [address] [place] [address] [place] [address] Family Medicine 06/03/15 Remington Coker DPM Podiatry 02/10/22 Ayad Wilhelm MD #2 [place] [address] [place] [address] Consulting Physician Colon and Rectal Surgery 10/27/23 documented as of this encounter
--- OUTSIDE RECORDS SUMMARY | 2024-11-21 18:16 | XMS_ITS | Encounter Summary ---
Author Organization [facility] Address [address] [place] [address] Phone Care Team Providers Care Locomotive Engineer Name Role Phone Kendall Blanton MD Unavailable [phone] Eddie Josue MD Primary Care Provider Remington Coker DPFrancisco Unavailable Unavailable Ayad Wilhelm MD Unavailable Reason for Visit * Reason Comments Medication Refill Encounter Details Date Type Department Care Team (Late st Contact Info) Description 11/15/2022 Refill [facility] #2 [place] [phone] Eddie Josue MD #[address] [address] Medication Refill Social History Tobacco Use Types Packs/Day Years Used Date Smoking Tobacco: Never Smokeless Tobacco: Never Alcohol Use Standard Drinks/Week Comments No 0 (1 standard drink = 0.6 oz pur e alcohol) Sexually Active Control Partners Comments Not Currently Comments No Sex and Gender Information Value Date Recorded Sex Assigned at Not on file 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 Requested Prescriptions Pending Prescriptions Disp Refills cyclobenzaprine (FLEXERIL) 10 MG Tablet [Pharmacy Med Name: CYCLOBENZAPRINE 10MG TABLETS] 90 Tablet0 Sig: TAKE 1 TABLET BY MOUTH THREE TIMES DAILY NEEDED FOR MUSCLE SPASMS Not Delegated - Muscle Relaxants Protocol Failed - 11/15/2022 9:33 AM Failed - This refill cannot be delegated Passed - Visit with relevant provider in past 12 months or upcoming 90 days Recent Visits Date Type Provider Dept 08/31/22 Office Visit Eddie Josue MD [facility] 02/24/22 Office Visit Eddie Josue MD [facility] 11/18/21 Office Visit Eddie Josue MD [facility] Showing recent visits within past 365 days and meeting all other requirements Future Appointments No visits were found meeting these conditions. Showing future appointments within next 90 days and meeting all other requirements zolpidem (AMBIEN) 5 MG Tablet [Pharmacy Med Name: ZOLPIDEM 5MG TABLETS] 30 Tablet Sig: TAKE 1 TABLET BY MOUTH AT BEDTIME NEEDED FOR SLEEP There is no refill protocol information for this order documented in this encounter Plan of Treatment Upcoming Encounters Date Type Department Care Team (Late st Contact Info) Description 12/13/2024 10:30 AM CDT Office Visit [facility] - Family Medicine - [place] #[address] [place] [address] Eddie Josue MD #[address] [address] documented as of this encounter Visit Diagnoses Diagnosis Primary insomnia Persistent disorder of initiating or maintaining sleep documented in this encounter Additional Health Concerns Infection Onset Date Last Indicated Resolved Time Respiratory Rule-Out 07/13/2023 07/13/2023 024 2:06 PM CDT COVID - 19 07/13/2023 07/13/2023 07/13/2023 2:06 PM CDT documented as of this encounter Care Teams Locomotive Engineer Relationship Specialty Start Date End Date Eddie Jos[facility] MD [facility] [address] [place] [address] PCP - General Family Medicine 08/07/21 Kendall Blanton MD [address] [place] [address] [place] [address] Family Medicine 06/03/15 Remington Coker DPM Podiatry 02/10/22 Ayad Wilhelm MD #2 [facility] [address] [place] [address] Consulting Physician Colon and Rectal Surgery 10/27/23 documented as of this encounter
--- OUTSIDE RECORDS SUMMARY | 2024-11-21 18:17 | XMS_ITS | Encounter Summary ---
Author Organization [facility] Address [address] [facility] [place] [address] Phone Care Team Providers Care Metal Hardener Name Role Phone Kendall Blanton MD Unavailable [phone] Eddie Josue MD Primary Care Provider Remington Coker DPFrancisco Unavailable Unavailable Ayad Wilhelm MD Unavailable Reason for Visit * Reason Onset Date Comments Appointment 11/02/2024 Encounter Details Date Type Department Care Team (Late st Contact Info) Description 11/02/2024 Telephone [facility] [address] [place] [address] Eddie Josue MD #[address] [address] Appointment Social History Tobacco Use Types Packs/Day Years Used Date Smoking Tobacco: Every Day Cigarettes 1.5 31.6 Started: 1995 Smokeless Tobacco: Never Alcohol Use Standard Drinks/Week Comments Not Currently 0 (1 standard drink = 0.6 oz pur e alcohol) [facility] Utilities Answer Date Recorded In the past 12 months has e electric, gas, oil, or water company threatened to shut off services in your home? Patient declined 10/14/2023 Social Connection and Isolation Panel Answer Date Recorded In a typical week, how many times do you talk on the phone with family, friends, or neighbors? Patient declined 10/14/2023 How often do you get togethe r with friends or relatives? Patient declined 10/14/2023 How often do you attend latter-day or mandaeism serv ices? Patient declined 10/14/2023 Do you belong to any clubs o r organizations such as latter-day groups, unions, fraternal or athletic groups, or school groups? Patient declined 10/14/2023 How often do you attend meet ings of the clubs or organizations you belong to? Patient declined 10/14/2023 Are you , , di vorced, , never , or living with a partner? Patient declined 10/14/2023 Overall Financial Resource Strain (CARDIA) Answe r Date Recorded How hard is it for you to pa y for the very basics like food, housing, medical care, and heating? Patient declined 10/14/2023 PHQ-2 Answer Date Recorded Total Score - Questions 1-9 0 03/0 07/2024 [facility] - Occupational Stress Questionnaire Answer Date Recorded Do you feel stress - tense, restless, nervous, or anxious, or unable to sleep at night because your mind is troubled all the time - these days? Patient declined 10/14/2023 Exercise Vital Sign Answer Date Recorde d On average, how many days pe r week do you engage in moderate to strenuous exercise (like a brisk walk)? Patient declined On average, how many minutes do you engage in exercise at this level? Patient declined 10/14/2023 Hunger Vital Sign Answer Date Recorded Within the past 12 months, y ou worried that your food would run out before you got the money to buy more. Patient declined Within the past 12 months, t he food you bought just didn't last and you didn't have money to get more. Patient declined 08/2023 PRAPARE - Transportation Answer Date Re corded In the past 12 months, has l ack of transportation kept you from medical appointments or from getting medications? Patient declined 10/14/2023 In the past 12 months, has l ack of transportation kept you from meetings, work, or from getting things needed for daily living? Patient declined 10/14/2023 Housing Stability Vital Sign Answer Ton e [...] place to sleep or slept in a intermediate (including now)? No 08/08/2023 Housing Stability Vital Sign Answer Ton e Recorded In the last 12 months, was t here a time when you were not able to pay the mortgage or rent on time? Patient declined 10/14/19 24 In the past 12 months, how m any times have you moved where you were living? 1 10/14/2023 At any time in the past 12 [facility], were you homeless or living in a intermediate (including now)? No 10/14/2023 AUDIT-C Answer Date Recorded Q1: How often do you have a drink containing alc ohol? Patient declined 11/02/2024 Q2: How many drinks containi ng alcohol do you have on a typical day when you are drinking? Patient declined 11/02/2024 Q3: How often do you have si x or more drinks on one occasion? 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 Patient declined 11/02/2024 11:16 AM Zora Boudreaux MA Q2: How many drinks containing alcohol do you have on a typical day when you are drinking? Patient declined 11/02/2024 11:16 AM Zora Boudreaux MA Q3: How often do you have six or more drinks on one occasion? Patient declined 11/02/2024 11:16 AM Zora Boudreaux MA documented as of this encounter Miscellaneous Notes * Telephone Encounter - Marc Escalante - 11/02/2024 9:48 AM CDT Symptom: Dizziness Outcome: Schedule an appointment at earliest convenience. Reason: Caller denied all higher acuity questions The caller accepted this outcome. Caller Denied: * Passed out * Can't stand (unless normally can't stand) * Trouble walking * Started within the past 3 days * Getting worse documented in this encounter Plan of Treatment Upcoming Encounters Date Type Department Care Team (Late st Contact Info) Description 12/13/2024 10:30 AM CDT Office Visit [facility] Family [facility] #2 [place] [address] Eddie Josue MD #2 [facility] [address] [place] [address] documented as of this encounter Visit Diagnoses Not on filedocumented in this encounter Additional Health Concerns Assessment Noted Time PHQ-9 Depression Total Score: 0 06/13/19 25 1:35 PM POTATO CHIP COOKER MACHINE documented as of this encounter Care Teams Metal Hardener Relationship Specialty Start Date End Date Eddie Josue MD #[address] [address] PCP - General Family Medicine 08/07/21 Kendall Blanton MD [address] [place] [address] [place] [address] Family Medicine 06/03/15 Remington Coker DPM Podiatry 02/10/22 Ayad Wilhelm MD #[address] [address] Consulting Physician Colon and Rectal Surgery 10/27/23 documented as of this encounter
--- OUTSIDE RECORDS SUMMARY | 2024-11-21 18:17 | XMS_ITS | Clinical Summary ---
Author Organization [facility] Address [address] [place] [address] Phone Care Team Providers Care Card Sorter Name Role Phone Kendall Blanton MD Unavailable [phone] Eddie Josue MD Primary Care Provider [phone] Remington Coker DPM Unavailable Unavailable Ayad Wilhelm MD Unavailable Allergies Active Allergy Reactions Criticality Noted Date Comments Amitriptyline Other (see Comments) 06/03/2015 Gabapentin Itching,Swelling 10/14/2023 Other Shortness of Breath 06/03/2015 Darvocet Propoxyphene Anaphylaxis,Hives,It riana,Rash,Short ness of Breath,Swelling 01/21/2000 Medications * This document contains information received from the source organization and may not represent a complete record from that organization. simvastatin (ZOCOR) 40 MG Tablet Take 1 Tablet by mouth every evening. 90 Tablet 3 06/13/19 25 Active Additional Information Patient not taking.Reported on 11/02/2024 zolpidem (AMBIEN) 5 MG TabletIndicati ons:Primary insomnia Take 1 Tablet by mouth nightly as needed for Sleep. 30 Tablet 10/25/19 25 Active cyclobenzaprin e (FLEXERIL) 10 MG Tablet TAKE 1 TABLET BY MOUTH THREE TIMES DAILY NEEDED FOR MUSCLE SPASMS 90 Tablet 07/15/20 25 Active cyclobenzaprin e (FLEXERIL) 10 MG Tablet TAKE 1 TABLET BY MOUTH THREE TIMES DAILY NEEDED FOR MUSCLE SPASMS 90 Tablet 09/24/19 25 025 Discontinued Active Problems Problem Noted Date Diagnosed Date Opioid withdrawal 10/14/2023 Tobacco dependence 10/14/2023 Chronic back pain 10/14/2023 Abnormal urinalysis 10/14/2023 Encounters Date Type Department Care Team Description 11/05/2024 Results Follow-Up [facility] [place] [address] Treva Hassan APRN, MONTSERRAT CMP (COMPREHENSIVE METABOLIC PANEL), LIPID PANEL, CBC WITH AUTO DIFFERENTIAL 11/02/2024 11:00 AM CDT Office Visit [facility] [place] [address] Treva Hassan APRN, MONTSERRAT Orthostatic hypotension (Primary Dx); Pure hypercholesterolemia Discharge Disposition: Discharged to home or Selfcare 11/02/2024 Travel 11/02/2024 Telephone [facility] [address] [place] [address] Eddie Josue MD Appointment 10/22/2024 Refill [facility] [place] [address] Eddie Josue MD Medication Refill 10/22/2024 Refill [facility] [place] [address] Eddie Josue MD Medication Refill 09/21/2024 Refill [facility] [place] [address] Eddie Josue MD Medication Refill from Last 3 Months Immunizations Immunization Administration Dates Next Due Covid-19, Mrna, Lnp-s, Pf, 3 0 Mcg/0.3 Ml Dose (CureVac) 03/02/2021,07/02/2020,06/10/2020 Influenza Vaccine, Quadrivalent, PF 02/24/2022 Influenza, Seasonal, Injectable, Undefined 02/20 Influenza,Split Virus,Trivalent,Injectable,PF 06/12/2024 TDAP Vaccine 08/09/2023 Family History Medical History Relation Name Comments No Known Problems Brother No Known Problems Daughter Cancer Father Phil emery Heart attack i n his sleep Heart Attack Father Phil emery Heart Disease Father Phil emery Breast Cancer Maternal Grandmother Cancer Maternal Grandmother Cancer Mother Sammie Diabetes. High blood pressure. Kidney dieease Diabetes Mother Sammie Type 2 Hypertension Mother Sammie Cancer Paternal Grandfather Phil Stroke Stroke Paternal Grandfather Phil Breast Cancer Paternal Grandmother Concepcion astorga Cancer Paternal Grandmother Concepcion astorga Colon cancer. Breast cancer Colon Cancer Paternal Grandmother Concepcion astorga Bipolar Disorder Son 1 Depression Son 1 No Known Problems Son 2 Relation Name Status Comments Brother Alive Daughter Alive Father Phil emery Alive Maternal Grandfather Maternal Grandmother Mother Sammie Alive Paternal Grandfather Phil Alive Paternal Grandmother Concepcion astorga Son 1 Alive Son 2 Alive Social History Tobacco Use Types Packs/Day Years Used Date Smoking Tobacco: Every Day Cigarettes 1.5 31.6 Started: 1993 Smokeless Tobacco: Never Tobacco Cessation:Ready to Q uit: No; Counseling Given: Yes Alcohol Use Standard Drinks/Week Comments Not Currently 0 (1 standard drink = 0.6 oz pur e alcohol) [facility] Utilities Answer Date Recorded In the past 12 months has [employer], gas, oil, or water [employer] threatened to shut off services in your home? Patient declined 10/14/2023 Social Connection and Isolation Panel Answer Date Recorded In a typical week, how many times do you talk on the phone with family, friends, or neighbors? Patient declined 10/14/2023 How often do you get togethe r with friends or relatives? Patient declined 10/14/2023 How often do you attend lutheran or mormon serv ices? Patient declined 10/14/2023 Do you belong to any clubs o r organizations such as lutheran groups, unions, fraternal or athletic groups, or [...] Score - Questions 1-9 0 03/0 07/2024 [facility] - Occupational Stress Questionnaire Answer Date Recorded [...] place to sleep or slept in a halfway (including now)? No 08/08/2023 Housing Stability Vital [...] any time in the past 12 m [facility], were you homeless or living in a halfway (including now)? 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 Gender Identity Not on file Sexual Orientation Not on file Last Filed Vital Signs Vital Sign Reading Time Taken Comments Blood Pressure 82/60 11/02/2024 11:44 AM CDT Pulse 112 11/02/2024 11:44 AM CDT Temperature 36.1 C (96.9 F) 11/02/2024 11:15 AM CDT Respiratory Rate 16 11/02/2024 11:15 AM CDT Oxygen Saturation 96% 11/02/2024 11:15 AM CDT Inhaled Oxygen Concentration - - Weight 75.3 kg (166 lb) 11/02/2024 11:15 AM CDT Height 175.3 cm (5' 9) 11/02/2024 11:15 AM CDT Body Mass Index 24.51 11/02/2024 11:15 AM CDT Plan of Treatment Upcoming Encounters Date Type Department Care Team (Late st Contact Info) Description 12/13/2024 10:30 AM CDT [facility] [place] [id number] Eddie Josue MD [address] [address] Health Maintenance Due Date Last Done Comments Hepatitis C Virus (HCV) Screening 1973 Hepatitis B Immunization (1 of 3 - 19+ 3-dose series) 1992 Pneumococcal Immunization (5 0+ years) (1 of 2 - PCV) 1992 Pap Smear 1994 Cervical Cancer Screening (CCS) 07/26/2003 HPV/Cotest 07/26/2003 Cologuard 2018 Colonoscopy 2018 Colorectal Cancer Screening 2018 Immunochemical Fecal Occult Blood 2018 Zoster Immunization (1 of 2) 07/26/2023 SARS-COV-2 Immunization ( - season) 2023 03/02/2021, 07/02/2020, 06/10/2020 Mammogram 10/25/2024 10/26/2023, 05/12/2015 Influenza Immunization (#1) 2024 03/0 07/2024, 02/24/2022, 02/20/2015 Lung Cancer Screening 07/18/2025 07/18/2024 Td Immunization Every 10 Yea rs (Adults With 1 Tdap) 08/08/2033 08/09/2023 Respiratory Syncytial Virus (RSV) Immunization (Adult) (1 - 1-dose 75+ series) 2048 DTaP/Tdap/Td Immunization Discontinued 08/09/2023 TdaP Immunization Discontinued 08/09/2023 Discussion re Starting/Frequency of Mammograms Discontinued 10/26/2023, 05/12/2015 Human Papillomavirus (HPV) Immunization Aged Out No longer eligible based on patient's age to complete this topic Meningococcal Immunization (ACWY) Aged Out No longer eligible based on patient's age to complete this topic Rotavirus Immunization Aged Out No lo nger eligible based on patient's age to complete this topic Procedures Procedure Name Priority Date/Time Associated Diagnosis Comments CBC WITH AUTO DIFFERENTIAL Routine 11/02/2024 12:22 PM CDT Orthostatic hypotension LIPID PANEL Routine 11/02/2024 12:22 PM CDT Pure hypercholesterolemia COMPLETE BLOOD COUNT (CBC) WITH DIFF Routine 11/02/2024 12:22 PM CDT Orthostatic hypotension CMP (COMPREHENSIVE METABOLIC PANEL) Routine 11/02/2024 12:22 PM CDT Orthostatic hypotension CT CHEST SCREENING WO Routine 07/18/2024 9:49 AM CDT Tobacco abuse FABIAN SCREENING BILATERAL DIGITAL W CAD W PATRICIA Routine 10/26/2023 2:00 PM CDT Encounter for screening mammogram for malignant neoplasm of breast from Last 3 Months or Most Recently Relevant to Health Maintenance Results * (ABNORMAL) CBC WITH AUTO DIFFERENTIAL (11/02/2024 12:22 PM CDT) WBC 7.34 4.00 - 12.00 10(3)/mcL 11/02/2024 12:37 PM CDT [facility] RBC 4.71 3.80 - 5.30 10(6)/mcL 11/02/2024 12:37 PM CDT [facility] HEMOGLOBIN (HGB) 14.5 12.0 - 15.8 g/dL 11/02/2024 12:37 PM CDT [facility] HEMATOCRIT (HCT) 43.5 36.0 - 47.0 % 11/02/2024 12:37 PM CDT [facility] MCV 92.4 82.0 - 96.0 fL 11/02/2024 12:37 PM CDT [facility] MCH 30.8 26.0 - 34.0 pg 11/02/2024 12:37 PM CDT [facility] MCHC 33.3 31.0 - 36.0 g/dL 11/02/2024 12:37 PM CDT [facility] PLATELET COUNT 218 140 - 440 10(3)/mcL 11/02/2024 12:37 PM CDT [facility] RDW 12.0 11.8 - 15.5 % 11/02/2024 12:37 PM CDT [facility] MPV 9.7 9.7 - 12.4 fL 11/02/2024 12:37 PM CDT [facility] NEUTROPHILS 44.7(L) 47.0 - 73.0 % 11/02/2024 12:37 PM CDT [facility] LYMPHOCYTES 44.6(H) 18.0 - 42.0 % 11/02/2024 12:37 PM CDT [facility] MONOCYTES 6.7 4.0 - 12.0 % 11/02/2024 12:37 PM CDT [facility] EOSINOPHILS 2.9 0.0 - 5.0 % 11/02/2024 12:37 PM CDT [facility] BASOPHILS 1.0 0.0 - 1.0 % 11/02/2024 12:37 PM CDT [facility] IMMATURE GRANULOCYTE 0.1 0.0 - 0.4 % 11/02/2024 12:37 PM CDT [facility] Comment:Immature Granulocyte s includes Metamyelocytes, Myelocytes, and Promyelocytes. ABSOLUTE NEUTROPHILS 3.29 1.60 - 7.70 10(3)/[facility] 11/02/2024 12:37 [facility] ABSOLUTE LYMPHOCYTES 3.27(H) 1.30 - 3.20 10(3)/[facility] 11/02/2024 12:37 PM [facility] ABSOLUTE MONOCYTES 0.49 0.20 - 1.00 10(3)/[facility] 11/02/2024 12:37 PM CDT [facility] ABSOLUTE EOSINOPHIL 0.21 0.00 - 0.40 10(3)/[facility] 11/02/2024 12:37 PM CDT [facility] ABSOLUTE BASOPHILS 0.07 0.00 - 0.10 10(3)/[facility] 11/02/2024 12:37 PM CDT [facility] ABSOLUTE IMMATURE GRANULOCYTE 0.01 0.00 - 0.03 10 (3) [facility]. 11/02/2024 12:37 PM [facility] NRBC PER 100 WBC 0 11/03/19 12:37 PM [facility] Blood Venipuncture / Unknown 11/02/2024 12:22 PM CDT 11/02/2024 12:32 PM CDT us Treva Hassan APRN, CNP HEMATOLOGY ORDERABLE S Final Result [facility] [address] [place] [address] * (ABNORMAL) LIPID PANEL (11/02/2024 12:22 PM CDT) CHOLESTEROL 234(H) <200 mg/dL 11/02/2024 1:25 PM CDT [facility] TRIGLYCERIDES 138 <150 mg/dL 11/02/2024 1:25 PM CDT [facility] HDL CHOLESTEROL 36(L) >40 mg/dL 1:25 PM CDT [facility] LDL 170(H) <130 mg/dL 11/02/2024 1:25 PM CDT [facility] VLDL 28 10 - 50 mg/dL 11/02/2024 1:25 PM CDT [facility] CHOL/HDL RATIO 6.5(H) 0.0 - 4.4 11/02/2024 1:25 PM CDT [facility] NON-HDL CHOLESTEROL 198(H) <130 mg/dL 11/02/2024 1:25 PM CDT [facility] IS THE PATIENT REQUIRED TO BE FASTING? Yes 11/02/2024 1:25 PM CDT [facility] HAS THE PATIENT BEEN FASTING? Yes 11/02/2024 1:25 PM CDT [facility] Blood Venipuncture / Unknown 11/02/2024 12:22 PM CDT 11/02/2024 12:32 PM CDT us Treva Hassan APRN, CNP CHEMISTRY ORDERABLES Final Result [facility] [address] [place] [address] * (ABNORMAL) CMP (COMPREHENSIVE METABOLIC PANEL) (11/02/2024 12:22 PM CDT) SODIUM 144 136 - 145 mmol/L 11/02/2024 1:25 PM CDT [facility] POTASSIUM 4.0 3.5 - 5.1 mmol/L 11/02/2024 1:25 PM CDT [facility] CHLORIDE 107 98 - 107 mmol/L 11/02/2024 1:25 PM CDT [facility] CO2, VENOUS 26 22 - 30 mmol/L 11/02/2024 1:25 PM CDT [facility] ANION GAP 15.0 <18.0 mmol/L 11/02/2024 1:25 PM CDT [facility] GLUCOSE 94 70 - 99 mg/dL 11/02/2024 1:25 PM CDT [facility] BUN 10 10 - 20 mg/dL 11/02/2024 1:25 PM CDT [facility] CREATININE, BLOOD 1.09(H) 0.60 - 1.00 mg/dL 11/02/2024 1:25 PM CDT [facility] BUN/CREATININE RATIO 9(L) 12 - 20 ratio 11/02/2024 1:25 PM CDT [facility] TOTAL PROTEIN 8.0 6.0 - 8.0 g/dL 11/02/2024 1:25 PM CDT [facility] ALBUMIN 4.8 3.5 - 5.0 g/dL 11/02/2024 1:25 PM CDT [facility] A/G RATIO 1.5 1.0 - 2.2 11/02/2024 1:25 PM CDT [facility] CALCIUM 9.7 8.7 - 10.5 mg/dL 11/02/2024 1:25 PM CDT [facility] T BILI 0.6 0.2 - 1.2 mg/dL 11/02/2024 1:25 PM CDT [facility] SGOT (AST) 29 <43 U/L 11/02/2024 1:25 PM CDT [facility] SGPT (ALT) 29 <56 U/L 11/02/2024 1:25 PM CDT [facility] ALKALINE PHOSPHATASE 68 40 - 150 U/L 11/02/2024 1:25 PM CDT [facility] IS THE PATIENT REQUIRED TO BE FASTING? No 11/02/2024 1:25 PM CDT [facility] GFR, ESTIMATED >60 >=60 11/02/2024 1:25 PM CDT [facility] Comment: Creatinine Clearance is the preferred criteria for selecting drug dose adjustments in renally impaired patients. The GFR is provided as additional pertinent clinical information. GFR is reported in mL/min/1.73 sq m. Calculation based on the Chronic Kidney Disease Epidemiology Collaboration (CKD- EPI) equation refit without adjustment for race. GFR, EST. >60 >=60 025 1:25 PM CDT [facility] GFR, EST. NONAFRICAN 53(L) >=60 11/02/2024 1:25 PM CDT [facility] Blood Venipuncture / Unknown 11/02/2024 12:22 PM CDT 11/02/2024 12:32 PM CDT us Treva Hassan SENIOR SOFTWARE DEVELOPMENT ENGINEER, [place]AT CHEMISTRY ORDERABLES Final Result [facility] [address] [place] [address] * CT CHEST SCREENING WO (07/18/2024 9:49 AM CDT) Anatomical Region Laterality Modality Chest N/A Computed Tomogra phy 07/27/2024 11:4 1 AM CDT Impressions 07/27/2024 11:44 AM CDT IMPRESSION: 2 mm solid nodule in the right upper lobe. Fovz-bp-tqcxcisv emphysematous changes to the lungs. 4.6 cm aneurysm of the ascending thoracic aorta. Lung-RADS category 2S: Benign appearance or behavior. Finding other than a pulmonary nodule which is potentially clinically significant. Recommendation: Low dose Screening CT of chest in 12 months. Narrative 07/27/2024 11:44 AM CDT EXAM DESCRIPTION: CT CHEST SCREENING WO REASON FOR STUDY: Screening CT of the chest in a current smoker with a 45 pack year smoking history. Additional history: None. TECHNIQUE: Low dose CT scan of the chest was performed without intravenous contrast using helical scanning technique. The exam extends from the lung apices through the lung bases. Automatic exposure control was used as a dose optimization technique. NOTE: This study was performed for the specific purposes of lung cancer screening and is not an alternative to diagnostic chest CT. RADIATION DOSE: CT dose index volume (CTDIvol) = 2.54 mGy COMPARISON: None FINDINGS: SMOKING RELATED LUNG DISEASE: There is biapical pleural-parenchymal scarring and there are mgqw-vx-ipqvhhwj emphysematous changes to the lungs. LUNG NODULES: 2 mm solid nodule in the right upper lobe laterally on image 127. CORONARY ARTERY CALCIFICATION: Positive OTHER: There is no pleural effusion or pneumothorax. The central airways are patent. Mild dilatation of the ascending thoracic aorta measuring up to 4.6 cm. Normal heart size without pericardial effusion. No mediastinal or axillary lymphadenopathy. There are no suspicious osseous lesions. THIS IS AN ELECTRONICALLY VERIFIED FINAL REPORT 07/27/2024 11:41 AM - Electronically signed by Edvin Little M.D. AM: AM Report ID: [id number] Reading Location: [place] [address] Procedure Note Edvin Little MD - 07/27/2024 EXAM DESCRIPTION: CT CHEST SCREENING WO REASON FOR STUDY: Screening CT of the chest in a current smoker with a 45 pack year smoking history. Additional history: None. TECHNIQUE: Low dose CT scan of the chest was performed without intravenous contrast using helical scanning technique. The exam extends from the lung apices through the lung bases. Automatic exposure control was used as a dose optimization technique. NOTE: This study was performed for the specific purposes of lung cancer screening and is not an alternative to diagnostic chest CT. RADIATION DOSE: CT dose index volume (CTDIvol) = 2.54 mGy COMPARISON: None FINDINGS: SMOKING RELATED LUNG DISEASE: There is biapical pleural-parenchymal scarring and there are szxi-dd-udmksthu emphysematous changes to the lungs. LUNG NODULES: 2 mm solid nodule in the right upper lobe laterally on image 127. CORONARY ARTERY CALCIFICATION: Positive OTHER: There is no pleural effusion or pneumothorax. The central airways are patent. Mild dilatation of the ascending thoracic aorta measuring up to 4.6 cm. Normal heart size without pericardial effusion. No mediastinal or axillary lymphadenopathy. There are no suspicious osseous lesions. THIS IS AN ELECTRONICALLY VERIFIED FINAL REPORT 07/27/2024 11:41 AM - Electronically signed by Edvin Little M.D. AM: AM Report ID: [id number] Reading Location: [id number] IMPRESSION: 2 mm solid nodule in the right upper lobe. Jmky-qr-pkyyrmif emphysematous changes to the lungs. 4.6 cm aneurysm of the ascending thoracic aorta. Lung-RADS category 2S: Benign appearance or behavior. Finding other than a pulmonary nodule which is potentially clinically significant. Recommendation: Low dose Screening CT of chest in 12 months. Eddie Josue MD IMG CT ORDERABLES Final Resul t * FABIAN SCREENING BILATERAL DIGITAL W CAD W PATRICIA (10/26/2023 2:00 PM CDT) Anatomical Region Laterality Modality breast Bilateral Mammography 10/26/2023 2:26 PM CDT Narrative 10/27/2023 11:06 AM CDT - FABIAN SCREENING BILATERAL DIGITAL W CAD W PATRICIA BILATERAL DIGITAL SCREENING MAMMOGRAM 3D/2D WITH CAD WITH MEDIOLATERAL OBLIQUE CRANIOCAUDAL: 10/26/2023 The study was acquired using digital technology and interpreted from soft copy. Current study was also evaluated with ICAD version 7.2. 2D digital mammographic views, as well as 3D digital tomosynthesis were performed in the CC and MLO projections. CLINICAL: Routine screening. Patient has no complaints. No personal history of cancer. She reports a weight increase of 20 pounds since her last exam. Maternal grandmother and maternal cousin had breast cancer. Paternal grandmother had breast cancer. COMPARISONS: Comparison is made to exams dated: 05/12/2015 [facility], 01/16/2014, and 03/02/2010 [facility]. BREAST TISSUE:There are scattered fibroglandular densities in both breasts. FINDINGS: No significant masses, calcifications, or other findings are seen in either breast. There has been no significant interval change. IMPRESSION: BI-RAD 1 NEGATIVE There is no mammographic evidence of malignancy. A 1 year screening mammogram is recommended. A letter will be sent to the patient with these results. The patient will be entered into a reminder system with a target due date of 1 year for her next screening exam. Electronically signed by: Ajay ling/pendora:10/26/2023 15:54:46 Manager Hi(s): RT Yaz(R)(M), [facility] letter sent: Normal Exam Reading location: [facility] BI-RADS: 1 Negative Procedure Note Ajay Shipman MD - 10/27/2023 - FABIAN SCREENING BILATERAL DIGITAL W CAD W PATRICIA BILATERAL DIGITAL SCREENING MAMMOGRAM 3D/2D WITH CAD WITH MEDIOLATERAL OBLIQUE CRANIOCAUDAL: 10/26/2023 The study was acquired using digital technology and interpreted from soft copy. Current study was also evaluated with ICAD version 7.2. 2D digital mammographic views, as well as 3D digital tomosynthesis were performed in the CC and MLO projections. CLINICAL: Routine screening. Patient has no complaints. No personal history of cancer. She reports a weight increase of 20 pounds since her last exam. Maternal grandmother and maternal cousin had breast cancer. Paternal grandmother had breast cancer. COMPARISONS: Comparison is made to exams dated: 05/12/2015 [facility], 01/16/2014, and 03/02/2010 [facility]. BREAST TISSUE:There are scattered fibroglandular densities in both breasts. FINDINGS: No significant masses, calcifications, or other findings are seen in either breast. There has been no significant interval change. IMPRESSION: BI-RAD 1 NEGATIVE There is no mammographic evidence of malignancy. A 1 year screening mammogram is recommended. A letter will be sent to the patient with these results. The patient will be entered into a reminder system with a target due date of 1 year for her next screening exam. Electronically signed by: Ajay ling/stuart:10/26/2023 15:54:46 Manager Hi(s): RT Yaz(R)(M), [facility] letter sent: Normal Exam Reading location: [place] BI-RADS: 1 Negative Eddie Josue MD IMG MAMMO ORDERABLES Final Re sult from Last 3 Months or Most Recently Relevant to Health Maintenance Insurance MEDICAID [place] Care Teams Card Sorter Relationship Specialty Start Date End Date Eddie oJsue MD [address] [address] PCP - General Family Medicine 08/07/21 Kendall Blanton MD [address] [place] [address] Family Medicine 06/03/15 Remington Coker, DPM Podiatry 02/10/22 Ayad Wilhelm MD [address] [place] [address] [place] [address] Consulting Physician Colon and Rectal Surgery 10/27/23
--- OUTSIDE RECORDS SUMMARY | 2024-11-21 18:17 | XMS_ITS | Encounter Summary ---
Author Organization [facility] Address [address] [place] [address] Phone Care Team Providers Care Staff Mechanical Engineer Name Role Phone Kendall Blanton MD Unavailable [phone] Eddie Josue MD Primary Care Provider Remington Coker DPFrancisco Unavailable Unavailable Ayad Wilhelm MD Unavailable Reason for Visit * Reason Onset Date Comments Results 11/05/2024 Encounter Details Date Type Department Care Team (Late st Contact Info) Description 11/05/2024 Results Follow-Up [facility] - Family Medicine [facility] [address] [place] [address] Treva Hassan APRN, HISTORICAL SITE GUIDE #[address] [address] CMP (COMPREHENSIVE METABOLIC PANEL), LIPID PANEL, CBC WITH AUTO DIFFERENTIAL Social History Tobacco Use Types Packs/Day Years Used Date Smoking Tobacco: Every Day Cigarettes 1.5 31.6 Started: 1993 Smokeless Tobacco: Never Alcohol Use Standard Drinks/Week Comments Not Currently 0 (1 standard drink = 0.6 oz pur e alcohol) [facility] Utilities Answer Date Recorded In the past 12 months has [employer] gas, oil, or water [employer] threatened to shut off services in your home? Patient declined 10/14/2023 Social Connection and Isolation Panel Answer Date Recorded In a typical week, how many times do you talk on the phone with family, friends, or neighbors? Patient declined 10/14/2023 How often do you get togethe r with friends or relatives? Patient declined 10/14/2023 How often do you attend tenriism or cheondoism serv ices? Patient declined 10/14/2023 Do you belong to any clubs o r organizations such as tenriism groups, unions, fraternal or athletic groups, or [...] Score - Questions 1-9 0 03/0 07/2024 [facility] - Occupational Stress [...] place to sleep or slept in a longterm (including now)? No 08/08/2023 Housing Stability Vital [...] any time in the past 12 m onths, were you homeless or living in a longterm (including now)? 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 How is she feeling? documented in this encounter Miscellaneous Notes * Telephone Encounter - Kristan Yap RN - 11/21/2024 4:13 PM CDT LVM #2 for patient requesting call back. * Telephone Encounter - Kristan Yap RN - 11/14/2024 12:03 PM CDT LVM for patient requesting call back. * Telephone Encounter - Randee Luo RN - 11/06/2024 9:34 AM CDT My chart message sent to patient .. * Telephone Encounter - Randee Luo RN - 11/06/2024 9:33 AM CDT ----- Message from Treva Hassan APRN, CNP sent at 11/05/2024 10:45 PM CDT ----- She has had a decrease in renal function, likely due to dehydration. How is she feeling? ----- Message ----- From: Yue Elias Background User Sent: 11/02/2024 12:37 PM CDT To: Treva Hassan APRN, CNP documented in this encounter Plan of Treatment Upcoming Encounters Date Type Department Care Team (Late st Contact Info) Description 12/13/2024 10:30 AM CDT Office Visit [facility] - Family Medicine - [place] [address] [place] [address] Eddie Josue MD #[address] [address] documented as of this encounter Visit Diagnoses Not on filedocumented in this encounter Additional Health Concerns Assessment Noted Time PHQ-9 Depression Total Score: 0 06/13/19 25 1:35 PM GOLF COURSE ARCHITECT documented as of this encounter Care Teams Staff Mechanical Engineer Relationship Specialty Start Date End Date Eddie Josue MD [facility] [address] [place] [address] PCP - General Family Medicine 08/07/21 Kendall Blanton MD [address] [place] [address] [place] [address] Family Medicine 06/03/15 Remington Coker DPM Podiatry 02/10/22 Ayad Wilhelm MD #2 [facility] [address] [place] [address] Consulting Physician Colon and Rectal Surgery 10/27/23 documented as of this encounter
--- NOTE | 2024-11-21 18:32 | ECG_ITS ---
Test Date: 2024-11-21 18:36:49 Measurements Intervals [place] Rate: 116 P: 19 MS: 164 QRS: -46 QRSD: 122 T: 3 QT: 336 QTc: 468 Interpretive Statements SINUS TACHYCARDIA RIGHT BUNDLE BRANCH BLOCK LEFT ANTERIOR FASCICULAR BLOCK INFERIOR INFARCT, AGE INDETERMINATE BASELINE ARTIFACT- I, II, III, AVR, AVL, AVF ABNORMAL ECG No previous ECG available for comparison Electronically Signed On 11-21-2024 18:45:09 CDT by Too Pozo D.O.
--- NOTE | 2024-11-21 18:43 | ED_ITS ---
HPI - Weakness General Chief complaint: Weakness Stated complaint: weakness Time Seen by Provider: 11/21/24 18:30 Focused HPI: Patient is a 49-year-old female who presents to the ER after passing out at work. She reports she was sitting on a couch at work when her coworkers noticed that she lost consciousness. Patient reports she does not think she hit her head. She denies any pain, headache, shortness of breath, or chest pain. Patient denies any alcohol or illicit drug use. She reports she took Flexeril earlier today because she has had trouble sleeping. Patient endorses a history of a AAA, lung cancer, and emphysema. She reports earlier today she was feeling hot and cold but attributes those symptoms to menopause. GENERAL: Ill-appearing, well-nourished, and in no acute distress. HEAD: Normocephalic, atraumatic. CHEST: Clear to auscultation. ?No respiratory distress. HEART: Tachycardia NEURO: ?Alert and oriented x3. Patient screened in triage and initial orders placed.? ?Additional care and disposition to be based upon?diagnostic testing and treatment. Related Data Allergies Allergy/AdvReac Type Severity Reaction Status Date / Time No Known Allergies Allergy Unknown Verified 11/21/24 18:19 Course Vital Signs Vital signs: Vital Signs Temperature 36.7 C 11/21/24 18:16 Pulse Rate 88 11/21/24 18:16 Respiratory Rate 16 11/21/24 18:16 Blood Pressure 116/81 11/21/24 18:16 Pulse Oximetry 98 11/21/24 18:16 Temperature 36.7 C 11/21/24 18:16 Pulse Rate 88 11/21/24 18:16 Respiratory Rate 16 11/21/24 18:16 Blood Pressure 116/81 11/21/24 18:16 Pulse Oximetry 98 11/21/24 18:16 MDM - Weakness Lab Data 11/21/24 18:49 11/21/24 18:49 Labs: Lab Results 11/21/24 Range/Units 18:49 WBC 7.7 (4.5-10.0) K/mm3 RBC 4.46 (4.2-5.4) M/mm3 Hgb 13.4 (12.0-15.0) g/dL Hct 41.8 (37.0-47.0) % MCV 93.7 (80-100) fl MCH 30.0 (26-34) pg MCHC 32.1 (32-36) g/dl RDW 12.1 (11.5-14.5) % Plt Count 217 (150-375) k/mm3 MPV 9.3 (7.4-10.4) fl Immature Gran % (Auto) 0.3 (0-0.5) % Neut % (Auto) 55.2 (45.5-73.1) % Lymph % (Auto) 34.7 (18.3-44.2) % [place] % (Auto) 6.5 (2.6-8.5) % Eos % (Auto) 2.5 (0-4.4) % Baso % (Auto) 0.8 (0.2-1.2) % Lymph # (Auto) 2.67 (0.9-3.2) K/mm3 [place] # (Auto) 0.5 (0.1-0.6) K/mm3 Eos # (Auto) 0.2 (0-0.3) K/mm3 Baso # (Auto) 0.1 (0.0-0.1) K/mm3 Abs Immat Gran (auto) 0.02 (0.00-0.031) K/mm3 Absolute Neuts (auto) 4.3 (1.3-6.7) K/mm3 Absolute Nucleated RBC 0.000 (0.0-0.012) K/mm3 Nucleated RBC % 0.0 (0.0-0.2) % PT 13.3 (11.1-14.7) Seconds INR 1.0 APTT 27.1 (22.3-36.8) Seconds Sodium 142 (137-145) mmol/L Potassium 4.3 (3.4-5.0) mmol/L Chloride 104 (98-107) mmol/L Carbon Dioxide 30 (22-30) mmol/L Anion Gap 8 (4-12) mmol/L BUN 14 (7-17) mg/dL Creatinine 0.91 (0.7-1.0) mg/dL Estim Creat Clear Calc 62 ml/min Estimated GFR > 60 (59 - ) Glucose 101 (65-110) mg/dL Calcium 9.8 (8.4-10.2) mg/dL Magnesium 2.0 (1.6-2.3) mg/dL Total Bilirubin 0.5 (0.2-1.3) mg/dL AST 28 (14-36) U/L ALT 15 (6-35) U/L Alkaline Phosphatase 54 (38-126) U/L Troponin I < 0.012 (0.000-0.034) ng/mL Total Protein 7.9 (6.3-8.2) g/dL Albumin 4.5 (3.5-5.1) g/dL Discharge Plan Discharge Clinical Impression: Episode of syncope Patient Disposition: Elopement After Seen by Prov Patient Language: Ecuadorean Follow-up/Referrals: José Miguel,MD Garth [Primary Care Provider] -
[2024-11-21 18:54] LABS: Hematocrit 41.8 % (37.0-47.0); Hemoglobin 13.4 g/dL (12.0-15.0); Immature Granulocyte Percent A 0.3 % (0-0.5); Lymphocytes Absolute Auto 2.67 K/mm3 (0.9-3.2); Mean Corpuscular HGB Conc 32.1 g/dl (32-36); Mean Corpuscular Hemoglobin 30.0 pg (26-34); Mean Corpuscular Volume 93.7 fl (80-100); Nucleated Red Blood Cells Absolute Auto 0.000 K/mm3 (0.0-0.012); Nucleated Red Blood Cells Perc 0.0 % (0.0-0.2); Platelet Count Result 217 k/mm3 (150-375); Red Blood Count 4.46 M/mm3 (4.2-5.4); White Blood Count 7.7 K/mm3 (4.5-10.0)
[2024-11-21 19:04] LABS: Alanine Aminotransferase 15 U/L (6-35); Albumin Level 4.5 g/dL (3.5-5.1); Alkaline Phosphatase 54 U/L (38-126); Anion Gap 8 mmol/L (4-12); Aspartate Amino Transferase 28 U/L (14-36); Bilirubin,Total 0.5 mg/dL (0.2-1.3); Blood Urea Nitrogen 14 mg/dL (7-17); Calcium 9.8 mg/dL (8.4-10.2); Carbon Dioxide 30 mmol/L (22-30); Chloride 104 mmol/L (98-107); Estimated CRCL calculation 62 ml/min; Estimated Glomerular Filt Rate > 60; Glucose 101 mg/dL (65-110); Magnesium 2.0 mg/dL (1.6-2.3); Potassium 4.3 mmol/L (3.4-5.0); Sodium 142 mmol/L (137-145); Total Protein 7.9 g/dL (6.3-8.2)
[2024-11-21 19:08] LABS: INR 1.0; Prothrombin Time 13.3 Seconds (11.1-14.7)
[2024-11-21 19:09] LABS: Partial Thromboplastin Time 27.1 Seconds (22.3-36.8)
[2024-11-21 19:16] LABS: Troponin I < 0.012 ng/mL (0.000-0.034)
--- OUTSIDE RECORDS SUMMARY | 2024-11-22 00:36 | XMS_ITS | Encounter Summary ---
Author Organization [facility] Address [address] [place] [address] Phone Care Team Providers Care Car Parker Name Role Phone Kendall Blanton MD Unavailable [phone] Eddie Josue MD Primary Care Provider [phone] Remington Coker DPFrancisco Unavailable Unavailable Ayad Wilhelm MD Unavailable Reason for Visit * Reason Comments Medication Refill Encounter Details Date Type Department Care Team (Late st Contact Info) Description 01/14/2023 [facility]ill [facility] - [facility] Medicine [facility] #2 [place] [address] Treva Hassan APRN, ADMINISTRATIVE COURT JUSTICE #[address] [address] Medication Refill Social History Tobacco Use Types Packs/Day Years Used Date Smoking Tobacco: Never Smokeless Tobacco: Never Alcohol Use Standard Drinks/Week Comments No 0 (1 standard drink = 0.6 oz pur e alcohol) Sexually Active Control Partners Comments Not Currently Comments No Sex and Gender Information Value Date Recorded Sex Assigned at Not on file 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 - Family Medicine - [place] #2 [place] [address] Eddie Josue MD #[address] [address] documented as of this encounter Visit Diagnoses Not on filedocumented in this encounter Additional Health Concerns Infection Onset Date Last Indicated Resolved Time Respiratory Rule-Out 07/13/2023 07/13/2023 024 2:06 PM CDT COVID - 19 07/13/2023 07/13/2023 07/13/2023 2:06 PM CDT documented as of this encounter Care Teams Car Parker Relationship Specialty Start Date End Date Eddie Josue MD #[address] [address] PCP - General Family Medicine 08/07/21 Kendall Blanton MD [address] [place] [address] [place] [address] Family Medicine 06/03/15 Remington Coker DPM Podiatry 02/10/22 Ayad Wilhelm MD #[address] [place] [address] [place] [address] Consulting Physician Colon and Rectal Surgery 10/27/23 documented as of this encounter
--- OUTSIDE RECORDS SUMMARY | 2024-11-22 00:36 | XMS_ITS | Encounter Summary ---
Author Organization [facility] Address [address] [place] [address] Phone Care Team Providers Care Veterinary Epidemiologist Name Role Phone Kendall Blanton MD Unavailable [phone] Eddie Josue MD Primary Care Provider [phone] Remington Coker DPM Unavailable Unavailable Ayad Wilhelm MD Unavailable Reason for Visit * Reason Comments Medication Refill Encounter Details Date Type Department Care Team (Late st Contact Info) Description 01/14/2023 Refill [facility] - Family Medicine [facility] #2 [place] [id number] Eddie Josue MD #[address] [address] Medication Refill Social History Tobacco Use Types Packs/Day Years Used Date Smoking Tobacco: Never Smokeless Tobacco: Never Alcohol Use Standard Drinks/Week Comments No 0 (1 standard drink = 0.6 oz pur e alcohol) Sexually Active Control Partners Comments Not Currently Comments No Sex and Gender Information Value Date Recorded Sex Assigned at Not on file 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 Gender Identity Not on file Sexual Orientation [...] Description 12/13/2024 10:30 AM CDT Office Visit [facility] - Family Medicine - [place] #2 [place] [address] Eddie Josue MD #[address] [address] documented as of this encounter Visit Diagnoses Diagnosis Primary insomnia Persistent disorder of initiating or maintaining sleep documented in this encounter Additional Health Concerns Infection Onset Date Last Indicated Resolved Time Respiratory Rule-Out 07/13/2023 07/13/2023 024 2:06 PM CDT COVID - 19 07/13/2023 07/13/2023 07/13/2023 2:06 PM CDT documented as of this encounter Care Teams Veterinary Epidemiologist Relationship Specialty Start Date End Date Eddie Josue MD #[address] [address] PCP - General Family Medicine 08/07/21 Kendall Blanton MD [address] [place] [address] [place] [address] Family Medicine 06/03/15 Remington Coker DPM Podiatry 02/10/22 Ayad Wilhelm MD #[address] [address] Consulting Physician Colon and Rectal Surgery 10/27/23 documented as of this encounter
--- OUTSIDE RECORDS SUMMARY | 2024-11-22 00:36 | XMS_ITS | Encounter Summary ---
Author Organization [facility] Address [address] [place] [address] Phone Care Team Providers Care Horizontal Boring Mill Set Up Operator Name Role Phone Kendall Blanton MD Unavailable [phone] Eddie Josue MD Primary Care Provider Remington Coker DPFrancisco Unavailable Unavailable Ayad Wilhelm MD Unavailable Reason for Visit * Reason Comments Medication Refill Encounter Details Date Type Department Care Team (Late st Contact Info) Description 02/13/2023 Refill [facility] - Family Medicine [facility] #2 [place] [id number] Eddie Josue MD #[address] [address] Medication Refill Social History Tobacco Use Types Packs/Day Years Used Date Smoking Tobacco: Never Smokeless Tobacco: Never Alcohol Use Standard Drinks/Week Comments No 0 (1 standard drink = 0.6 oz pur e alcohol) Sexually Active Control Partners Comments Not Currently Comments No Sex and Gender Information Value Date Recorded Sex Assigned at Not on file 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 Gender Identity Not on file Sexual Orientation [...] 90 days and meeting all other requirements CH INSPECTOR documented in this encounter Plan of Treatment Upcoming Encounters Date Type Department Care Team (Late st Contact Info) Description 12/13/2024 10:30 AM CDT Office Visit [facility] - Family Medicine - [place] #2 [place] [address] Eddie Josue MD #2 [facility] [address] [place] [address] documented as of this encounter Visit Diagnoses Diagnosis Primary insomnia Persistent disorder of initiating or maintaining sleep documented in this encounter Additional Health Concerns Infection Onset Date Last Indicated Resolved Time Respiratory Rule-Out 07/13/2023 07/13/2023 024 2:06 PM CDT COVID - 19 07/13/2023 07/13/2023 07/13/2023 2:06 PM CDT documented as of this encounter Care Teams Horizontal Boring Mill Set Up Operator Relationship Specialty Start Date End Date Eddie Josue MD #2 [facility] [address] [place] [address] PCP - General Family Medicine 08/07/21 Kendall Blanton MD [address] [place] [address] [place] [address] Family Medicine 06/03/15 Remington Coker DPM Podiatry 02/10/22 Ayad Wilhelm MD #2 [facility] [address] [place] [address] Consulting Physician Colon and Rectal Surgery 10/27/23 documented as of this encounter
--- OUTSIDE RECORDS SUMMARY | 2024-11-22 00:36 | XMS_ITS | Clinical Summary ---
Author Organization [facility] Address [address] [place] [address] Phone Care Team Providers Care Manager Digital Name Role Phone Kendall Blanton MD Unavailable [phone] Eddie Josue MD Primary Care Provider [phone] Remington Coker DPM Unavailable Unavailable Ayad Wilhelm [...] by mouth every evening. 90 Tablet 3 5 Active Additional Information Patient not taking.Reported on 11/02/2024 zolpidem (AMBIEN) 5 MG TabletIndicatio ns:Primary insomnia Take 1 Tablet by mouth nightly as needed for Sleep. 30 Tablet 5 Active cyclobenzaprine (FLEXERIL) 10 MG Tablet TAKE 1 TABLET BY MOUTH THREE TIMES DAILY NEEDED FOR MUSCLE SPASMS 90 Tablet 5 Active Active Problems Problem Noted Date Diagnosed Date Opioid withdrawal 10/14/2023 Tobacco dependence 10/14/2023 Chronic back pain 10/14/2023 Abnormal urinalysis 10/14/2023 Encounters Date Type Department Care Team Description 11/05/2024 Results Follow-Up [facility] [address] [place] [address] Treva Hassan APRN, CNP CMP (COMPREHENSIVE METABOLIC PANEL), LIPID PANEL, CBC WITH AUTO DIFFERENTIAL 11/02/2024 11:00 AM CDT Office Visit [facility] [address] [place] [address] Treva Hassan APRN, MONTSERRAT Orthostatic hypotension (Primary Dx); Pure hypercholesterolemia Discharge Disposition: Discharged to home or Selfcare 11/02/2024 Travel 11/02/2024 Telephone [facility] [address] [place] [address] Eddie Josue MD Appointment 10/22/2024 Refill [facility] [address] [place] [address] Eddie Josue MD Medication Refill 10/22/2024 Refill [facility] [address] [place] [address] Eddie Josue MD Medication Refill 09/21/2024 Refill [facility] [address] [place] [address] Eddie Josue MD Medication Refill from Last 3 Months Immunizations Immunization Administration Dates Next Due Covid-19, Mrna, Lnp-s, Pf, 3 0 Mcg/0.3 Ml Dose ([facility] [place]) 03/02/2021,07/02/2020,06/10/2020 Influenza Vaccine, Quadrivalent, PF 02/24/2022 Influenza, [...] drink = 0.6 oz pur e alcohol) [facility] Utilities Answer Date Recorded In the past 12 months has [employer], gas, oil, or water [employer] threatened to shut off services in your home? Patient declined 10/14/2023 Social Connection and Isolation Panel Answer Date Recorded In a typical week, how many times do you talk on the phone with family, friends, or neighbors? Patient declined 10/14/2023 How often do you get togethe r with friends or relatives? Patient declined 10/14/2023 How often do you attend taoist or hinduism serv ices? Patient declined 10/14/2023 Do you belong to any clubs o r organizations such as taoist groups, unions, fraternal or athletic groups, or [...] Recorded Total Score - Questions 1-9 0 /0 07/2024 [facility] - Occupational [...] place to sleep or slept in a long-term (including now)? No 08/08/2023 Housing Stability Vital [...] any time in the past 12 m [facility], were you homeless or living in a long-term (including now)? 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 Gender Identity Not on file Sexual Orientation [...] Visit [facility] [address]2 [place] [address] Eddie Josue MD [id number] [address] Health Maintenance Due Date Last Done Comments [...] (1 of 2) 07/26/2023 SARS-COV-2 Immunization ( season) 2023 03/02/2021, 07/02/2020, 06/10/2020 Mammogram 10/25/2024 [...] - 12.00 10(3)/mcL 11/02/2024 12:37 PM CDT [facility] RBC 4.71 3.80 - 5.30 10(6)/mcL 11/02/2024 12:37 PM CDT [facility] HEMOGLOBIN (HGB) 14.5 12.0 - 15.8 g/dL 11/02/2024 12:37 PM CDT [facility] HEMATOCRIT (HCT) 43.5 36.0 - 47.0 % 11/02/2024 12:37 PM CDT [facility] MCV 92.4 82.0 - 96.0 fL 11/02/2024 12:37 PM CDT [facility] MCH 30.8 26.0 - 34.0 pg 11/02/2024 12:37 PM CDT [facility] MCHC 33.3 31.0 - 36.0 g/dL 11/02/2024 12:37 PM CDT [facility] PLATELET COUNT 218 140 - 440 10(3)/mcL 11/02/2024 12:37 PM CDT [facility] RDW 12.0 11.8 - 15.5 % 11/02/2024 12:37 PM CDT [facility] MPV 9.7 9.7 - 12.4 fL 11/02/2024 12:37 PM CDT [facility] NEUTROPHILS 44.7(L) 47.0 - 73.0 % 11/02/2024 12:37 PM CDT [facility] LYMPHOCYTES 44.6(H) 18.0 - 42.0 % 11/02/2024 12:37 PM CDT [facility] MONOCYTES 6.7 4.0 - 12.0 % 11/02/2024 12:37 PM CDT [facility] EOSINOPHILS 2.9 0.0 - 5.0 % 11/02/2024 12:37 PM CDT [facility] BASOPHILS 1.0 0.0 - 1.0 % 11/02/2024 12:37 PM CDT [facility] IMMATURE GRANULOCYTE 0.1 0.0 - 0.4 % 11/02/2024 12:37 PM CDT [facility] Comment:Immature Granulocyte s includes Metamyelocytes, Myelocytes, and Promyelocytes. ABSOLUTE NEUTROPHILS 3.29 1.60 - 7.70 10(3)/[facility] 11/02/2024 12:37 PM CDT [facility] ABSOLUTE LYMPHOCYTES 3.27(H) 1.30 - 3.20 10(3)/[facility] 11/02/2024 12:37 PM CDT [facility] ABSOLUTE MONOCYTES 0.49 0.20 - 1.00 10(3)/[facility] 11/02/2024 12:37 PM CDT [facility] ABSOLUTE EOSINOPHIL 0.21 0.00 - 0.40 10(3)/[facility] 11/02/2024 12:37 PM CDT [facility] ABSOLUTE BASOPHILS 0.07 0.00 - 0.10 10(3)/[facility] 11/02/2024 12:37 PM CDT [facility] ABSOLUTE IMMATURE GRANULOCYTE 0.01 0.00 - 0.03 10 (3) mcL. 11/02/2024 12:37 PM CDT [facility] NRBC PER 100 WBC 0 11/03/19 12:37 PM CDT [facility] Blood Venipuncture / Unknown 11/02/2024 12:22 PM CDT 11/02/2024 12:32 PM CDT us Treva Hassan PLAYGROUND MONITOR, COLLEGE SPORTS COACH HEMATOLOGY ORDERABLE S Final Result [facility]1 [facility] [place] [address] * (ABNORMAL) LIPID PANEL (11/02/2024 12:22 PM CDT) CHOLESTEROL 234(H) <200 mg/dL 11/02/2024 1:25 PM CDT [facility] TRIGLYCERIDES 138 <150 mg/dL 11/02/2024 1:25 PM CDT [facility] HDL CHOLESTEROL 36(L) >40 mg/dL 1:25 PM CDT [facility] LDL 170(H) <130 mg/dL 11/02/2024 1:25 PM CDT [facility] VLDL 28 10 - 50 mg/dL 11/02/2024 1:25 PM CDT [facility] CHOL/HDL RATIO 6.5(H) 0.0 - 4.4 11/02/2024 1:25 PM CDT [facility] NON-HDL CHOLESTEROL 198(H) <130 mg/dL 11/02/2024 1:25 PM CDT [facility] IS THE PATIENT REQUIRED TO BE FASTING? Yes 11/02/2024 1:25 PM CDT [facility] HAS THE PATIENT BEEN FASTING? Yes 11/02/2024 1:25 PM CDT [facility] Blood Venipuncture / Unknown 11/02/2024 12:22 PM CDT 11/02/2024 12:32 PM CDT us Treva Hassan PLAYGROUND MONITOR, COLLEGE SPORTS COACH CHEMISTRY ORDERABLES Final Result [facility] [address]1 [place] [address] * (ABNORMAL) CMP (COMPREHENSIVE METABOLIC PANEL) (11/02/2024 12:22 PM CDT) SODIUM 144 136 - 145 mmol/L 11/02/2024 1:25 PM CDT [facility] POTASSIUM 4.0 3.5 - 5.1 mmol/L 11/02/2024 1:25 PM CDT [facility] CHLORIDE 107 98 - 107 mmol/L 11/02/2024 1:25 PM CDT [facility] CO2, VENOUS 26 22 - 30 mmol/L 11/02/2024 1:25 PM CDT [facility] ANION GAP 15.0 <18.0 mmol/L 11/02/2024 1:25 PM CDT [facility] GLUCOSE 94 70 - 99 mg/dL 11/02/2024 1:25 PM CDT [facility] BUN 10 10 - 20 mg/dL 11/02/2024 1:25 PM CDT [facility] CREATININE, BLOOD 1.09(H) 0.60 - 1.00 mg/dL 11/02/2024 1:25 PM CDT [facility] BUN/CREATININE RATIO 9(L) 12 - 20 ratio 11/02/2024 1:25 PM CDT [facility] TOTAL PROTEIN 8.0 6.0 - 8.0 g/dL 11/02/2024 1:25 PM CDT [facility] ALBUMIN 4.8 3.5 - 5.0 g/dL 11/02/2024 1:25 PM CDT [facility] A/G RATIO 1.5 1.0 - 2.2 11/02/2024 1:25 PM CDT [facility] CALCIUM 9.7 8.7 - 10.5 mg/dL 11/02/2024 1:25 PM CDT [facility] T BILI 0.6 0.2 - 1.2 mg/dL 11/02/2024 1:25 PM CDT [facility] SGOT (AST) 29 <43 U/L 11/02/2024 1:25 PM CDT [facility] SGPT (ALT) 29 <56 U/L 11/02/2024 1:25 PM CDT [facility] ALKALINE PHOSPHATASE 68 40 - 150 U/L 11/02/2024 1:25 PM CDT [facility] IS THE PATIENT REQUIRED TO BE FASTING? No 11/02/2024 1:25 PM CDT [facility] GFR, ESTIMATED >60 >=60 11/02/2024 1:25 PM CDT [facility] Comment: Creatinine Clearance is the preferred criteria for selecting drug dose adjustments in renally impaired patients. The GFR is provided as additional pertinent clinical information. GFR is reported in mL/min/1.73 sq m. Calculation based on the Chronic Kidney Disease Epidemiology Collaboration (CKD- EPI) equation refit without adjustment for race. GFR, EST. >60 >=60 025 1:25 PM CDT [facility] GFR, EST. NONAFRICAN 53(L) >=60 11/02/2024 1:25 PM CDT [facility] Blood Venipuncture / Unknown 11/02/2024 12:22 PM CDT 11/02/2024 12:32 PM CDT us Treva Hassan APRN, MONTSERRAT CHEMISTRY ORDERABLES Final Result [facility] [address] [place] [address] * CT CHEST SCREENING WO (07/18/2024 9:49 AM CDT) Anatomical Region Laterality Modality Chest N/A Computed Tomogra phy 07/27/2024 11:4 1 AM CDT Impressions 07/27/2024 11:44 AM CDT IMPRESSION: 2 mm solid nodule in the right upper lobe. Oymf-lw-nbmsursn emphysematous changes to the lungs. 4.6 cm [...] is biapical pleural-parenchymal scarring and there are nnek-qd-ivtrichz emphysematous changes to the lungs. LUNG NODULES: [...] Edvin Little M.D. AM: AM Report ID: [id number] Reading Location: [place] [address] Procedure Note Edvin Little MD - 07/27/2024 [...] is biapical pleural-parenchymal scarring and there are qcsc-gb-ytubkfcx emphysematous changes to the lungs. LUNG NODULES: [...] Edvin Little M.D. AM: AM Report ID: [id number] Reading Location: [id number] IMPRESSION: 2 mm solid nodule in the right upper lobe. Jkta-en-fdnbxizm emphysematous changes to the lungs. 4.6 cm [...] Comparison is made to exams dated: 05/12/2015 [facility], 01/16/2014, and 03/02/2010 [facility]. BREAST TISSUE:There are scattered fibroglandular densities in [...] next screening exam. Electronically signed by: Ajay Shipman M.D. ll/penrad:10/26/2023 15:54:46 Investment Accountant(s): LISBETH Mukherjee)(M), [facility] letter sent: Normal Exam Reading location: [facility] BI-RADS: 1 Negative Procedure Note Ajay Shipman [...] Comparison is made to exams dated: 05/12/2015 [facility], 01/16/2014, and 03/02/2010 [facility]. BREAST TISSUE:There are scattered fibroglandular densities in [...] next screening exam. Electronically signed by: Ajay Shipman M.D. ll/penrad:10/26/2023 15:54:46 Investment Accountant(s): RT Yaz(R)(M), [facility] letter sent: Normal Exam Reading location: [place] BI-RADS: 1 Negative Eddie Josue MD IMG MAMMO ORDERABLES Final Re sult from Last 3 Months or Most Recently Relevant to Health Maintenance Insurance MEDICAID [place] Care Teams Manager Digital Relationship Specialty Start Date End Date Eddie Josue MD [address] [place] [address] [place] [address] PCP - General Family Medicine 08/07/21 Kendall Blanton MD [address] [place] [address] [place] [address] Family Medicine 2/23/16 Remington Coker DPM Podiatry 02/10/22 Ayad Wilhelm MD #[address] [address] Consulting Physician Colon and Rectal Surgery 10/27/23
--- OUTSIDE RECORDS SUMMARY | 2024-11-22 00:36 | XMS_ITS | Encounter Summary ---
Author Organization [facility] Address [address] [place] [address] Phone Care Team Providers Care Senior Sustainability Advisor Name Role Phone Kendall Blanton MD Unavailable [phone] Eddie Josue MD Primary Care Provider [phone] Remington Coker DPFrancisco Unavailable Unavailable Ayad Wilhelm MD Unavailable Reason for Visit * Reason Comments Medication Refill Encounter Details Date Type Department Care Team (Late st Contact Info) Description 10/13/2022 Refill [facility] #2 [place] [phone] Eddie Josue MD #[address] [address] Medication Refill Social History Tobacco Use Types Packs/Day Years Used Date Smoking Tobacco: Never Smokeless Tobacco: Never Alcohol Use Standard Drinks/Week Comments No 0 (1 standard drink = 0.6 oz pur e alcohol) Sexually Active Control Partners Comments Not Currently Comments No Sex and Gender Information Value Date Recorded Sex Assigned at Not on file Legal Sex Female 11:14 AM PRACTICE BILLING ASSOCIATE Gender Identity Not on file Sexual Orientation [...] [place] 11/18/21 Office Visit Eddie Josue MD [facility] Showing recent visits within past 365 [...] 12/13/2024 10:30 AM CDT Office Visit [facility] - [facility] [address] [place] [address] Eddie Josue MD [address] [address] documented as of this encounter Visit Diagnoses Diagnosis Primary insomnia Persistent disorder of initiating or maintaining sleep documented in this encounter Additional Health Concerns Infection Onset Date Last Indicated Resolved Time Respiratory Rule-Out 07/13/2023 07/13/2023 024 2:06 PM CDT COVID - 19 07/13/2023 07/13/202307/13/2023 2:06 PM CDT documented as of this encounter Care Teams Senior Sustainability Advisor Relationship Specialty Start Date End Date Eddie Josue MD #2 [facility] [address] [place] [address] PCP - General Family Medicine 08/07/21 Kendall Blanton MD [address] [place] [address] [place] [address] Family Medicine 06/03/15 Remington Coker DPM Podiatry 02/10/22 Ayad Wilhelm MD #2 [facility] [address] [place] [address] Consulting Physician Colon and Rectal Surgery 10/27/23 documented as of this encounter
--- OUTSIDE RECORDS SUMMARY | 2024-11-22 00:36 | XMS_ITS | Encounter Summary ---
Author Organization [facility] Address [address] [place] [address] Phone Care Team Providers Care Lease Buyer Name Role Phone Kendall Blanton MD Unavailable [phone] Eddie Josue MD Primary Care Provider Remington Coker DPM Unavailable Unavailable Ayad Wilhelm MD Unavailable Reason for Visit * Reason Comments Medication Refill Encounter Details Date Type Department Care Team (Late st Contact Info) Description 09/13/2022 Refill [facility] - Family [facility] #2 [place] [phone] Eddie Josue MD #[address] [address] Medication Refill Social History Tobacco Use Types Packs/Day Years Used Date Smoking Tobacco: Never Smokeless Tobacco: Never Alcohol Use Standard Drinks/Week Comments No 0 (1 standard drink = 0.6 oz pur e alcohol) Sexually Active Control Partners Comments Not Currently Comments No Sex and Gender Information Value Date Recorded Sex Assigned at Not on file 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 Gender Identity Not on file [...] Office Visit [facility] Family [facility] #[address] [place] [address] Eddie Josue MD #2 [facility] [address] [place] [address] documented as of this encounter Visit Diagnoses Diagnosis Primary insomnia Persistent disorder of initiating or maintaining sleep documented in this encounter Additional Health Concerns Infection Onset Date Last Indicated Resolved Time Respiratory Rule-Out 07/13/2023 07/13/2023 024 2:06 PM CDT COVID - 19 07/13/2023 07/13/2023 07/13/2023 2:06 PM CDT documented as of this encounter Care Teams Lease Buyer Relationship Specialty Start Date End Date Eddie Josue MD #[address] [address] PCP - General Family Medicine 08/07/21 Kendall Blanton MD [address] [place] [address] [place] [address] Family Medicine 06/03/15 Remington Coker DPM Podiatry 02/10/22 Ayad Wilhelm MD #[address] [address] Consulting Physician Colon and Rectal Surgery 10/27/23 documented as of this encounter
--- OUTSIDE RECORDS SUMMARY | 2024-11-22 00:36 | XMS_ITS | Clinical Summary ---
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 This [...] Most Recently Relevant to Health Maintenance Insurance [facility] ACCESS CHOICE Member Subscriber Plan / Payer (Ef fective 2023-Present) Name:Risa Amanda Relation to Subscriber:Self Name:Risa Amanda Payer ID:[id number] (NAIC) Type:BC ALLIANCE Address: [facility] [id number] [place] [id number] Care Teams Hairspring I Inspector Relationship Specialty Start Date End Date No, Physician PCP - General 05/16/19
--- OUTSIDE RECORDS SUMMARY | 2024-11-22 00:36 | XMS_ITS | Encounter Summary ---
Author Organization [facility] Address [address] [place] [address] Phone Care Team Providers Care Road Supervisor Name Role Phone Kendall Blanton MD Unavailable [phone] Eddie Josue MD Primary Care Provider [phone] Remington Coker DPFrancisco Unavailable Unavailable Ayad Wilhelm MD Unavailable Reason for Visit * Reason Comments Medication Refill Encounter Details Date Type Department Care Team (Late st Contact Info) Description 07/19/2022 Refill 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 Gender Identity Not on file Sexual Orientation Not on file documented as of this encounter Miscellaneous Notes * Telephone Encounter - Samra Ledesma RN - 07/19/2022 12:16 PM CDT duplicate documented in this encounter Plan of Treatment Upcoming Encounters Date Type Department Care Team (Late st Contact Info) Description 12/13/2024 10:30 AM CDT Office Visit [facility] #2 [place] [address] Eddie Josue MD #[address] [address] documented as of this encounter Visit Diagnoses Diagnosis Primary insomnia Persistent disorder of initiating or maintaining sleep documented in this encounter Additional Health Concerns Infection Onset Date Last Indicated Resolved Time Respiratory Rule-Out 07/13/2023 07/13/2023 024 2:06 PM CDT COVID - 19 07/13/2023 07/13/2023 07/13/2023 2:06 PM CDT documented as of this encounter Care Teams Road Supervisor Relationship Specialty Start Date End Date Eddie Josue MD #[address] [address] PCP - General Family Medicine 08/07/21 Kendall Blanton MD [address] [place] [address] [place] [address] Family Medicine 06/03/15 Remington Coker DPM Podiatry 02/10/22 Ayad Wilhelm MD #[address] [address] Consulting Physician Colon and Rectal Surgery 10/27/23 documented as of this encounter
--- OUTSIDE RECORDS SUMMARY | 2024-11-22 00:36 | XMS_ITS | Encounter Summary ---
Author Organization [facility] Address [address] [facility] [place] [address] Phone Care Team Providers Care Upholstery Auto Trimmer Name Role Phone Kendall Blanton MD Unavailable [phone] Eddie Josue MD Primary Care Provider [phone] Remington Coker DPFrancisco Unavailable Unavailable Ayad Wilhelm MD Unavailable Reason for Visit * Reason Onset Date Comments Appointment 11/02/2024 Encounter Details Date Type Department Care Team (Late st Contact Info) Description 11/02/2024 Telephone [facility] [address] [place] [address] Eddie Josue MD #[address] [address] Appointment Social History Tobacco Use Types Packs/Day Years Used Date Smoking Tobacco: Every Day Cigarettes 1.5 31.6 Started: 1995 Smokeless Tobacco: Never Alcohol Use Standard Drinks/Week Comments Not Currently 0 (1 standard drink = 0.6 oz pur e alcohol) [facility] Utilities Answer Date Recorded In the past [...] declined 10/14/2023 How often do you attend scientology or rastafarian serv ices? Patient declined 10/14/2023 Do you belong to any clubs o r organizations such as scientology groups, unions, fraternal or athletic groups, or [...] Score - Questions 1-9 0 03/0 07/2024 [facility] - Occupational Stress Questionnaire Answer Date Recorded [...] place to sleep or slept in a senior care (including now)? No 08/08/2023 Housing Stability Vital [...] any time in the past 12 m [facility], were you homeless or living in a senior care (including now)? 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 Gender Identity Not on file Sexual Orientation [...] Office Visit [facility] #2 [place] [address] Eddie Josue MD #2 [facility] [address] [place] [address] documented as of this encounter Visit Diagnoses Not on filedocumented in this encounter Additional Health Concerns Assessment Noted Time PHQ-9 Depression Total Score: 0 06/13/19 25 1:35 PM HYDROELECTRIC SYSTEMS TECHNICIAN documented as of this encounter Care Teams Upholstery Auto Trimmer Relationship Specialty Start Date End Date Eddie Josue MD #[address] [address] PCP - General Family Medicine 08/07/21 Kendall Blanton MD [address] [place] [address] [place] [address] Family Medicine 06/03/15 Remington Coker DPM Podiatry 02/10/22 Ayad Wilhelm MD #[address] [address] Consulting Physician Colon and Rectal Surgery 10/27/23 documented as of this encounter
--- OUTSIDE RECORDS SUMMARY | 2024-11-22 00:36 | XMS_ITS | Encounter Summary ---
Author Organization [facility] Address [address] [place] [address] Phone Care Team Providers Care Gear Cutting Machine Operator Name Role Phone Kendall Blanton MD Unavailable [phone] Eddie Josue MD Primary Care Provider Remington Coker DPFrancisco Unavailable Unavailable Ayad Wilhelm MD Unavailable Reason for Visit * Reason Onset Date Comments Results 11/05/2024 Encounter Details Date Type Department Care Team (Late st Contact Info) Description 11/05/2024 Results Follow-Up [facility] Medical Group - Family Medicine [facility] #2 [place] [address] Treva Hassan APRN, FLIGHT DYNAMICIST #[address] [address] CMP (COMPREHENSIVE METABOLIC PANEL), LIPID PANEL, CBC WITH AUTO DIFFERENTIAL Social History Tobacco Use Types Packs/Day Years Used Date Smoking Tobacco: Every Day Cigarettes 1.5 31.6 Started: 1993 Smokeless Tobacco: Never Alcohol Use Standard Drinks/Week Comments Not Currently 0 (1 standard drink = 0.6 oz pur e alcohol) [facility] Utilities Answer Date Recorded In the past 12 months has [employer], gas, oil, or water [employer] threatened to shut off services in your home? Patient declined 10/14/2023 Social Connection and Isolation Panel Answer Date Recorded In a typical week, how many times do you talk on the phone with family, friends, or neighbors? Patient declined 10/14/2023 How often do you get togethe r with friends or relatives? Patient declined 10/14/2023 How often do you attend temple or tenriism serv ices? Patient declined 10/14/2023 Do you belong to any clubs o r organizations such as temple groups, unions, fraternal or athletic groups, or [...] Score - Questions 1-9 0 03/0 07/2024 [facility] - Occupational [...] place to sleep or slept in a long term (including now)? No 08/08/2023 Housing Stability Vital [...] were you homeless or living in a long term (including now)? 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 * Telephone Encounter - Kristan Ypa RN - 11/14/2024 12:03 PM CDT LVM [...] [facility] - [place] [address] [place] [address] Eddie Josue MD [address] [address] documented as of this encounter Visit Diagnoses Not on filedocumented in this encounter Additional Health Concerns Assessment Noted Time PHQ-9 Depression Total Score: 0 06/13/19 25 1:35 PM STRETCHER HELPER documented as of this encounter Care Teams Gear Cutting Machine Operator Relationship Specialty Start Date End Date Eddie Josue MD [facility]2 [facility] [address] [place] [address] PCP - General Family Medicine 08/07/21 Kendall Blanton MD [address] [place] [address] [place] [address] Family Medicine 06/03/15 Remington Coker DPM Podiatry 02/10/22 Ayad Wilhelm MD #2 [facility] [address] [place] [address] Consulting Physician Colon and Rectal Surgery 10/27/23 documented as of this encounter
--- OUTSIDE RECORDS SUMMARY | 2024-11-22 00:36 | XMS_ITS | Encounter Summary ---
Author Organization [facility] Address [address] [place] [address] Phone Care Team Providers Care Superintendent Maintenance Name Role Phone Kendall Blanton MD Unavailable [phone] Eddie Josue MD Primary Care Provider Remington Coker DPFrancisco Unavailable Unavailable Ayad Wilhelm MD Unavailable Reason for Visit * Reason Comments Medication Refill Encounter Details Date Type Department Care Team (Late st Contact Info) Description 07/18/2022 [facility]ill [facility] #2 [place] [id number] Eddie Josue MD #[address] [address] Medication Refill Social History Tobacco Use Types Packs/Day Years Used Date Smoking Tobacco: Never Smokeless Tobacco: Never Alcohol Use Standard Drinks/Week Comments No 0 (1 standard drink = 0.6 oz pur e alcohol) Sexually Active Control Partners Comments Not Currently Comments No Sex and Gender Information Value Date Recorded Sex Assigned at Not on file 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 Gender Identity Not on file Sexual [...] Office Visit [facility] - Family [facility] #[address] [place] [address] Eddie Josue MD #2 [address] [facility] [address] [place] [address] documented as of this encounter Visit Diagnoses Diagnosis Primary insomnia Persistent disorder of initiating or maintaining sleep documented in this encounter Additional Health Concerns Infection Onset Date Last Indicated Resolved Time Respiratory Rule-Out 07/13/2023 07/13/2023 024 2:06 PM CDT COVID - 19 07/13/2023 07/13/2023 07/13/2023 2:06 PM CDT documented as of this encounter Care Teams Superintendent Maintenance Relationship Specialty Start Date End Date Eddie Josue MD [facility]2 [facility] [address] [place] [address] PCP - General Family Medicine 08/07/21 Kendall Blanton MD [address] [place] [address] [place] [address] Family Medicine 06/03/15 Remington Coker DPM Podiatry 02/10/22 Ayad Wilhelm MD #[address] [address] Consulting Physician Colon and Rectal Surgery 10/27/23 documented as of this encounter
--- OUTSIDE RECORDS SUMMARY | 2024-11-22 00:36 | XMS_ITS | Encounter Summary ---
Author Organization [facility] Address [address] [place] [address] Phone Care Team Providers Care Senior Stereo Compiler Team Lead Name Role Phone Kendall Blanton MD Unavailable [phone] Eddie Josue MD Primary Care Provider [phone] Remington Coker DPFrancisco Unavailable Unavailable Ayad Wilhelm MD Unavailable Reason for Visit * Reason Comments Medication Refill Encounter Details Date Type Department Care Team (Late st Contact Info) Description 04/11/2022 Refill [facility] - Family Medicine [facility] #2 [place] [phone] Eddie Josue MD #[address] [address] Medication Refill Social History Tobacco Use Types Packs/Day Years Used Date Smoking Tobacco: Never Smokeless Tobacco: Never Alcohol Use Standard Drinks/Week Comments No 0 (1 standard drink = 0.6 oz pur e alcohol) Sexually Active Control Partners Comments Not Currently Comments No Sex and Gender Information Value Date Recorded Sex Assigned at Not on file 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 Showing future appointments within next 90 days and meeting all other requirements TESTING OPERATOR documented in this encounter Plan of Treatment Upcoming Encounters Date Type Department Care Team (Late st Contact Info) Description 12/13/2024 10:30 AM CDT Office Visit [facility] Medical Group - Family Medicine - [place] #2 [place] [address] Eddie Josue MD #[address] [address] documented as of this encounter Visit Diagnoses Diagnosis Primary insomnia Persistent disorder of initiating or maintaining sleep documented in this encounter Additional Health Concerns Infection Onset Date Last Indicated Resolved Time Respiratory Rule-Out 07/13/2023 07/13/2023 024 2:06 PM CDT COVID - 19 07/13/2023 07/13/2023 07/13/2023 2:06 PM CDT documented as of this encounter Care Teams Senior Stereo Compiler Team Lead Relationship Specialty Start Date End Date Eddie Josue MD #[address] [address] PCP - General Family Medicine 08/07/21 Kendall Blanton MD [address] [place] [address] [place] [address] Family Medicine 06/03/15 Remington Coker DPM Podiatry 02/10/22 Ayad Wilhelm MD #2 [place] [address] [place] [address] Consulting Physician Colon and Rectal Surgery 10/27/23 documented as of this encounter
--- OUTSIDE RECORDS SUMMARY | 2024-11-22 00:36 | XMS_ITS | Encounter Summary ---
Author Organization [facility] Address [address] [place] [address] Phone Care Team Providers Care Svp Monetization Name Role Phone Kendall Blanton MD Unavailable [phone] Eddie Josue MD Primary Care Provider Remington Coker DPFrancisco Unavailable Unavailable Ayad Wilhelm MD Unavailable Reason for Visit * Reason Comments Medication Refill Encounter Details Date Type Department Care Team (Late st Contact Info) Description 11/15/2022 Refill [facility] Family Medicine [facility] #2 [place] [phone] Eddie Josue MD #[address] [address] Medication Refill Social History Tobacco Use Types Packs/Day Years Used Date Smoking Tobacco: Never Smokeless Tobacco: Never Alcohol Use Standard Drinks/Week Comments No 0 (1 standard drink = 0.6 oz pur e alcohol) Sexually Active Control Partners Comments Not Currently Comments No Sex and Gender Information Value Date Recorded Sex Assigned at Not on file 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 Gender Identity Not on file Sexual Orientation [...] [place] 11/18/21 Office Visit Eddie Josue MD [facility] Showing recent visits within past 365 days [...] 10:30 AM CDT Office Visit [facility] Medical Group - Family Medicine - [place] [address] [place] [address] Eddie Josue MD [address] [address] documented as of this encounter Visit Diagnoses Diagnosis Primary insomnia Persistent disorder of initiating or maintaining sleep documented in this encounter Additional Health Concerns Infection Onset Date Last Indicated Resolved Time Respiratory Rule-Out 07/13/2023 07/13/2023 024 2:06 PM CDT COVID - 19 07/13/2023 07/13/2023 07/13/2023 2:06 PM CDT documented as of this encounter Care Teams Svp Monetization Relationship Specialty Start Date End Date Eddie Josue MD #2 [facility] [address] [place] [address] PCP - General Family Medicine 08/07/21 Kendall Blanton MD [address] [place] [address] [place] [address] Family Medicine 06/03/15 Remington Coker DPM Podiatry 02/10/22 Ayad Wilhelm MD #2 [facility] [address] [place] [address] Consulting Physician Colon and Rectal Surgery 10/27/23 documented as of this encounter
--- OUTSIDE RECORDS SUMMARY | 2024-11-22 00:36 | XMS_ITS | Encounter Summary ---
Author Organization [facility] Address [address] [place] [address] Phone Care Team Providers Care Science Professor Name Role Phone Kendall Blanton MD Unavailable [phone] Eddie Josue MD Primary Care Provider [phone] Remington Coker DPM Unavailable Unavailable Ayad Wilhelm MD Unavailable Reason for Visit * Reason Comments Medication Refill Encounter Details Date Type Department Care Team (Late st Contact Info) Description 05/17/2022 Refill [facility] Medical Group - Family Medicine [facility] #2 [place] [address] Eddie Josue MD #[address] [address] Medication Refill Social History Tobacco Use Types Packs/Day Years Used Date Smoking Tobacco: Never Smokeless Tobacco: Never Alcohol Use Standard Drinks/Week Comments No 0 (1 standard drink = 0.6 oz pur e alcohol) Sexually Active Control Partners Comments Not Currently Comments No Sex and Gender Information Value Date Recorded Sex Assigned at Not on file 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 No / Unsure 05/18/2022 10:02 AM MANAGER QUALITY SYSTEMS documented as of this encounter Miscellaneous Notes [...] Josue MD [facility] [place] 08/17/21 Office Visit Edide Josue MD [facility] Showing recent visits [...] 90 days and meeting all other requirements GER QUALITY SYSTEMS documented in this encounter Plan of Treatment Upcoming Encounters Date Type Department Care Team (Late st Contact Info) Description 12/13/2024 10:30 AM CDT Office Visit [facility] - Family [facility] #[address] [place] [address] Eddie Josue MD #[address] [facility] [address] [place] [address] documented as of this encounter Visit Diagnoses Diagnosis Primary insomnia Persistent disorder of initiating or maintaining sleep documented in this encounter Additional Health Concerns Infection Onset Date Last Indicated Resolved Time Respiratory Rule-Out 07/13/2023 07/13/2023 024 2:06 PM CDT COVID - 19 07/13/2023 07/13/2023 07/13/2023 2:06 PM CDT documented as of this encounter Care Teams Science Professor Relationship Specialty Start Date End Date Eddie Josue MD #[address] [facility] [address] [place] [address] PCP - General Family Medicine 08/07/21 Kendall Blanton MD [address] [place] [address] [place] [address] Family Medicine 06/03/15 Remington Coker DPM Podiatry 02/10/22 Ayad Wilhelm MD #[address] [facility] [address] [place] [address] Consulting Physician Colon and Rectal Surgery 10/27/23 documented as of this encounter
--- OUTSIDE RECORDS SUMMARY | 2024-11-22 00:36 | XMS_ITS | Encounter Summary ---
Author Organization [facility] Address [address] [place] [address] Phone Care Team Providers Care Lathe Sander Name Role Phone Kendall Blanton MD Unavailable [phone] Eddie Josue MD Primary Care Provider Remington Coker DPFrancisco Unavailable Unavailable Ayad Wilhelm MD Unavailable Reason for Visit * Reason Comments Medication Refill Encounter Details Date Type Department Care Team (Late st Contact Info) Description 09/06/2023 Refill [facility] Medical Group - Family Medicine [facility] #2 [place] [address] Eddie Josue MD #[address] [address] Medication Refill Social History Tobacco Use Types Packs/Day Years Used Date Smoking Tobacco: Never Smokeless Tobacco: Never Alcohol Use Standard Drinks/Week Comments No 0 (1 standard drink = 0.6 oz pur e alcohol) [facility] Utilities Answer Date Recorded In the [...] Never 08/08/2023 How often do you attend presybeterian or jew serv ices? Never 08/08/2023 Do you belong to any clubs o r organizations such as presybeterian groups, unions, fraternal or athletic groups, or [...] Total Score - Questions 1-9 0 07/12 [facility] Occupat ional [facility] - Occupational Stress [...] in a intermediate (including now)? 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 Gender Identity Not on file Sexual [...] [place] 07/13/23 Office Visit Eddie Josue MD [facility] [place] Showing recent visits within past [...] Dept 08/09/23 Office Visit Eddie Josue MD [facility] [place] 07/13/23 Office Visit Eddie Josue MD [facility] Showing recent visits within past 365 [...] Group - Family Medicine - [place] #2 [facility] [place] [address] Eddie Josue MD #[address] [address] documented as of this encounter Visit Diagnoses Diagnosis Primary insomnia Persistent disorder of initiating or maintaining sleep documented in this encounter Additional Health Concerns Assessment Noted Time PHQ-9 Depression Total Score: 0 08/09/19 11:07 AM CDT documented as of this encounter Care Teams Lathe Sander Relationship Specialty Start Date End Date Eddie Josue MD #[address] [address] PCP - General Family Medicine 08/07/21 Kendall Blanton MD [address] [place] [address] [place] [address] Family Medicine 06/03/15 Remington Coker DPM Podiatry 02/10/22 Ayad Wilhelm MD #[address] [address] Consulting Physician Colon and Rectal Surgery 10/27/23 documented as of this encounter
--- OUTSIDE RECORDS SUMMARY | 2024-11-22 00:36 | XMS_ITS | Encounter Summary ---
Author Organization [facility] Address [address] [place] [address] Phone Care Team Providers Care Heat Sealing Machine Operator Name Role Phone Kendall Blanton MD Unavailable [phone] Eddie Josue MD Primary Care Provider Remington Coker DPFrancisco Unavailable Unavailable Ayad Wilhelm MD Unavailable Reason for Visit * Reason Comments Medication Refill Encounter Details Date Type Department Care Team (Late st Contact Info) Description 06/18/2022 Refill [facility] Family Medicine [facility] #2 [place] [address] Eddie Josue MD #[address] [address] Medication Refill Social History Tobacco Use Types Packs/Day Years Used Date Smoking Tobacco: Never Smokeless Tobacco: Never Alcohol Use Standard Drinks/Week Comments No 0 (1 standard drink = 0.6 oz pur e alcohol) Sexually Active Control Partners Comments Not Currently Comments No Sex and Gender Information Value Date Recorded Sex Assigned at Not on file 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 Gender Identity Not on file Sexual Orientation [...] [place] 08/17/21 Office Visit Eddie Josue MD [facility] [place] Showing recent visits within past 365 days and meeting all other requirements Future Appointments Date Type Provider Dept 08/31/22 Appointment Eddie Josue MD [facility] [place] Showing future appointments within next 90 days and meeting all other requirements QUE FINISHER documented in this encounter Plan of Treatment Upcoming Encounters Date Type Department Care Team (Late st Contact Info) Description 12/13/2024 10:30 AM CDT Office Visit [facility] Medical Group - Family Medicine [facility] #2 [place] [address] Eddie Josue MD #[address] [address] documented as of this encounter Visit Diagnoses Diagnosis Primary insomnia Persistent disorder of initiating or maintaining sleep documented in this encounter Additional Health Concerns Infection Onset Date Last Indicated Resolved Time Respiratory Rule-Out 07/13/2023 07/13/2023 024 2:06 PM CDT COVID - 19 07/13/2023 07/13/2023 07/13/2023 2:06 PM CDT documented as of this encounter Care Teams Heat Sealing Machine Operator Relationship Specialty Start Date End Date Eddie Josue MD #[address] [facility] [address] [place] [address] PCP - General Family Medicine 08/07/21 Kendall Blanton MD [address] [place] [address] [place] [address] Family Medicine 06/03/15 Remington Coker DPM Podiatry 02/10/22 Ayad Wilhelm MD #2 [address] [facility] [address] [place] [address] Consulting Physician Colon and Rectal Surgery 10/27/23 documented as of this encounter
--- OUTSIDE RECORDS SUMMARY | 2024-11-22 00:36 | XMS_ITS | Encounter Summary ---
Author Organization [facility] Address [address] [place] [address] Phone Care Team Providers Care Pouch Making Machine Operator Name Role Phone Kendall Blanton MD Unavailable [phone] Eddie Josue MD Primary Care Provider Remington Coker DPM Unavailable Unavailable Ayad Wilhelm MD Unavailable Reason for Visit * Reason Comments Medication Refill Encounter Details Date Type Department Care Team (Late st Contact Info) Description 03/09/2022 Refill [facility] Group - Family Medicine [facility] #2 [place] [address] Eddie Josue MD #[address] [address] Medication Refill Social History Tobacco Use Types Packs/Day Years Used Date Smoking Tobacco: Never Smokeless Tobacco: Never Alcohol Use Standard Drinks/Week Comments No 0 (1 standard drink = 0.6 oz pur e alcohol) Sexually Active Control Partners Comments Not Currently Comments No Sex and Gender Information Value Date Recorded Sex Assigned at Not on file 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 No / Unsure 02/24/2022 8:18 AM ACCOUNT INSTALLER documented as of this encounter Miscellaneous Notes [...] [place] 08/17/21 Office Visit Eddie Josue MD [facility] Showing recent visits within past 365 days [...] no refill protocol information for this order UNT INSTALLER documented in this encounter Plan of Treatment Upcoming Encounters Date Type Department Care Team (Late st Contact Info) Description 12/13/2024 10:30 AM CDT Office Visit [facility] Medical Group - Family Medicine - [place] #2 [place] [address] Eddie Josue MD #[address] [address] documented as of this encounter Visit Diagnoses Diagnosis Primary insomnia Persistent disorder of initiating or maintaining sleep documented in this encounter Additional Health Concerns Infection Onset Date Last Indicated Resolved Time Respiratory Rule-Out 07/13/2023 07/13/2023 024 2:06 PM CDT COVID - 19 07/13/2023 07/13/2023 07/13/2023 2:06 PM CDT documented as of this encounter Care Teams Pouch Making Machine Operator Relationship Specialty Start Date End Date Eddie Josue MD #2 [facility] [address] [place] [address] PCP - General Family Medicine 08/07/21 Kendall Blanton MD [address] [place] [address] [place] [address] Family Medicine 06/03/15 Remington Coker DPM Podiatry 02/10/22 Ayad Wilhelm MD #2 [facility] [address] [place] [address] Consulting Physician Colon and Rectal Surgery 10/27/23 documented as of this encounter
--- OUTSIDE RECORDS SUMMARY | 2024-11-22 00:36 | XMS_ITS | Encounter Summary ---
Author Organization [facility] Address [address] [place] [address] Phone Care Team Providers Care Customs Compliance Manager Name Role Phone Kendall Blanton MD Unavailable [phone] Eddie Josue MD Primary Care Provider [phone] Remington Coker DPFrancisco Unavailable Unavailable Ayad Wilhelm MD Unavailable Reason for Visit * Reason Comments Medication Refill Encounter Details Date Type Department Care Team (Late st Contact Info) Description 08/19/2022 Refill [facility] - [facility] [address] [place] [id number] Eddie Josue MD [address] [address] Medication Refill Social History Tobacco Use Types Packs/Day Years Used Date Smoking Tobacco: Never Smokeless Tobacco: Never Alcohol Use Standard Drinks/Week Comments No 0 (1 standard drink = 0.6 oz pur e alcohol) Sexually Active Control Partners Comments Not Currently Comments No Sex and Gender Information Value Date Recorded Sex Assigned at Not on file 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 Gender Identity Not on file Sexual Orientation [...] 10:30 AM CDT Office Visit [facility] - Family Medicine - [place] [address] [place] [phone] Eddie Josue MD [address]2 [facility] [address] [place] [address] documented as of this encounter Visit Diagnoses Diagnosis Primary insomnia Persistent disorder of initiating or maintaining sleep documented in this encounter Additional Health Concerns Infection Onset Date Last Indicated Resolved Time Respiratory Rule-Out 07/13/2023 07/13/2023 024 2:06 PM CDT COVID - 19 07/13/2023 07/13/2023 07/13/2023 2:06 PM CDT documented as of this encounter Care Teams Customs Compliance Manager Relationship Specialty Start Date End Date Eddie Josue MD [address]2 [facility] [address] [place] [address] PCP - General Family Medicine 08/07/21 Kendall Blanton MD [address] [place] [address] [place] [address] Family Medicine 06/03/15 Remington Coker DPM Podiatry 02/10/22 Ayad Wilhelm MD #2 [facility] [address] [place] [address] Consulting Physician Colon and Rectal Surgery 10/27/23 documented as of this encounter
--- OUTSIDE RECORDS SUMMARY | 2024-11-22 00:36 | XMS_ITS | Encounter Summary ---
Author Organization [facility] Address [address] [place] [address] Phone Care Team Providers Care Locator Specialist Name Role Phone Kendall Blanton MD Unavailable [phone] Eddie Josue MD Primary Care Provider Remington Coker DPFrancisco Unavailable Unavailable Ayad Wilhelm MD Unavailable Reason for Visit * Reason Comments Medication Refill Encounter Details Date Type Department Care Team (Late st Contact Info) Description 12/15/2022 Refill [facility] - Family Medicine 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 Gender Identity Not on file Sexual [...] Description 12/13/2024 10:30 AM CDT Office Visit [facility] - Family Medicine - [place] [address] [place] [address] Eddie Josue MD #[address] [address] documented as of this encounter Visit Diagnoses Not on filedocumented in this encounter Additional Health Concerns Infection Onset Date Last Indicated Resolved Time Respiratory Rule-Out 07/13/2023 07/13/2023 024 2:06 PM CDT COVID - 19 07/13/2023 07/13/2023 07/13/2023 2:06 PM CDT documented as of this encounter Care Teams Locator Specialist Relationship Specialty Start Date End Date Eddie Josue MD [address] [address] PCP - General Family Medicine 08/07/21 Kendall Blanton MD [address] [place] [address] [place] [address] Family Medicine 06/03/15 Remington Coker DPM Podiatry 02/10/22 Ayad Wilhelm MD #[address] [address] Consulting Physician Colon and Rectal Surgery 10/27/23 documented as of this encounter
== END 2024-11-21 23:59 | disposition left against medical advice (07) ==
PROVIDERS: Emergency Provider Registered Nurse; PCP Internal Medicine Infectious Disease
DX: R55 Syncope and collapse (principal); J43.9 Emphysema, unspecified; Z85.118 Personal history of other malignant neoplasm of bronchus and lung
CPT/HCPCS: 36415; 70450; 71046; 80053; 83735; 84484; 85025; 85610; 85730; 93005; 99284